=== PATIENT | male | born 1940 | race Caucasian/White ===

== ENCOUNTER 2016-12-18 21:53 | Inpatient (IN) | payer BC, OTHER ==
[~2016-12-18] VITALS: Ht 175.3 cm; Wt 66.0 kg
[2016-12-18 22:54] VITALS: BP 127/71; PULSE 74; TEMP 36.8; Ht 175.3 cm; Wt 66.0 kg
[2016-12-18 23:45] VITALS: BP 120/70; PULSE 74; TEMP 36.7; O2SAT 91
[2016-12-19] VITALS (9 sets, daily range): BP systolic 92–135; BP diastolic 50–75; PULSE 63–84; TEMP 36.9–37.3; O2SAT 93–96
[2016-12-19] MEDS ORDERED: LISI40TA PO (00:07)
[2016-12-19] MEDS ORDERED: AMLO-110 PO (00:07)
[2016-12-19] MEDS ORDERED: SODIUM CHLORIDE 0.45% 1000ML 1,000 ML IV SCH (00:17)
[2016-12-19] MEDS ORDERED: MoRPHine SULFATE 4 MG/ML 1 ML CARP\\VIAL IV PRN (00:30)
[2016-12-19] MEDS ORDERED: MoRPHine SULFATE 2 MG/ML CARP IV PRN (00:30)
[2016-12-19] MEDS ORDERED: ONDANSETRON INJ 2 MG/ML 2 ML VIAL IV PRN ×2 (00:30→12:30)
--- NOTE | 2016-12-19 00:54 | History and Physical ---
History & Physical Date & Time of Service: December 19, 2016 at 00:38 Chief Complaint: Rt Hip Fracture Primary Care Physician: Maik Grubbs M.D. (ROSINE) History of Present Illness Source: patient Patient is a poor historian This is a 76 yo m with HTN that is a direct admit from [place] for a right hip fracture. The patient states that he was painting this afternoon on a ladder when he lost his balance and fell onto his right side. This occurred at approx 1340. He quickly went to [facility] for evaluation and he was found to have a right hip fracture. Dr valdes was contacted and it was advised that the patient be admitted to [facility] for further treatment. Patient states that his pain is a dull 1/10 over the right hip if he is just resting. He does note that with any movement it is an 8-9/10 pain which resolves as soon as he stops moving. he denies any numbness/ tingling of the lower extremity. He has no history of TN or TIA/ stroke. He is only treated for HTN with amlodipine and Lisinopril. He has no history of DM. He has had not previous surgeries. He smokes 1 PPD > 30 years. On assessment patient had a 3/6 systolic murmur noted that radiated to the carotids as well as an occasional skipped heart beat. He has never been evaluated for the murmur. Able to walk a block and a flight of stairs without shortness of breath. Past Medical/Surgical History HTN Family History No significant family history Social History Smoking Status: Current Every Day Smoker (1 PPD x 30 years) Smokeless Tobacco Use: No Alcohol Use: none Drug Use: none Marital Status: Housing status: lives with family Allergies Coded Allergies: No Known Allergies (Unverified , 12/19/16) Home Medications Scheduled Amlodipine (Norvasc), 5 MG PO DAILY Lisinopril (Zestril), 40 MG PO DAILY Review of Systems Constitutional: No fever Eyes: No worsening of vision ENT: + hearing loss (KOBUK, BL) Respiratory: No cough, No dyspnea at rest, No dyspnea on exertion, No shortness of breath, No sputum, No wheezing Cardiovascular: No chest pain Abdomen: No nausea, No pain, No vomiting Musculoskeletal: + joint pain (right hip pain as above), No muscle pain Genitourinary - Male: No dysuria, No urinary incontinence Neurologic: No balance problems, No numbness/tingling, No weakness Endocrine: No fatigue Integumentary: No rash Physical Exam Vital Signs Date Time Temp Pulse Resp B/P Pulse Ox O2 Delivery O2 Flow Rate FiO2 12/18/16 23:45 36.7 74 16 120/70 91 Room Air 12/18/16 22:57 Room Air 12/18/16 22:54 36.8 74 18 127/71 General Appearance: no apparent distress Head: normocephalic, atraumatic Eyes: normal inspection ENT: normal ENT inspection Neck: supple Respiratory/Chest: normal breath sounds, no respiratory distress, no accessory muscle use, + pertinent finding (pes cavis) Cardiovascular: regular rate, rhythm, + systolic murmur (3/6), + pertinent finding (occasional skipped beat) Abdomen/GI: normal bowel sounds, non tender, soft Back: normal inspection Extremities/Musculoskelatal: no calf tenderness, no pedal edema, + pertinent finding (swelling of the right hip, limted ROM of the right leg because of pain , neurovascularly intact in bilat LE, sensation intact in bilat LE) Neurologic/Psych: alert, normal mood/affect, oriented x 3 Skin: normal color, warm/dry, no rash Lymphatic: no adenopathy Diagnostics Laboratory Results Results Past 24 Hours Test 12/19/16 00:17 Range/Units Impression Assessment and Plan This is a 76 yo m that is suffering from a right hip fracture and is anticipating surgery tomorrow Pre op evaluation - Patient is an ASA II with a an RCRI of 0.4% based on the patient's history - As the patient had an unknown murmur and has never had appropriate work up would be appropriate with an echo to rule out severe aortic stenosis - based on results cardiology may be necessary for clearance - EKG and CXR Right hip fracture - Pain control with morphine based on rating - NSS @ 50 cc/h while NPO - Ortho consult - Records from [place] have been sent to HIM for uploading into the EMR - CBC, BMP and Type and screen HTN - continue amlodipine - hold lisinopril DVt prophylaxis - SCD with anticipated surgery Resident Physician Supervision Note: Pt seen/examined independently. I discussed the case with the resident and agree with the findings and plan as documented in the note. Any exceptions or clarifications are listed here: 76 y/o M Hx HTN - fall from stairs transferred from [place] due to R hip Fx OE AAO x 3 S1,2 R - systolic murmur 2-09/30 CTAB NT, ND, BS+ No CCE P: Echo will be obtained to R/O severe which can affect outcomes Pt otherwise does not have significant cardiovascular risk Above discussed with pt and resident Documented By: John Fajardo ASA Classification: ASA Class II Level of Care Med/Surg Advanced Directives Existing Living Will: No Existing Power of Mat Sewer: No Resuscitation Status FULL RESUSCITATION VTE Prophylaxis VTE Risk Assessment Done? Y/N: Yes Risk Level: Moderate Given or contraindicated: SCD's Social Service Consult None Apply Note Total Time: Critical Care 30 - 74 minutes Additional Copies To Maik Grubbs M.D. (ROSINE)
[2016-12-19 01:03] LABS: HEMATOCRIT 38.1 % (42-52); MEAN CELL VOLUME 94.5 fL (80-100); MEAN CORPUSCULAR HGB CONC 34.9 g/dl (32-36); MEAN PLATELET VOLUME 9.6 fL (7.4-10.4); PLATELET COUNT 223 K/uL (130-400); RED BLOOD COUNT 4.03 M/uL (4.7-6.1); WHITE BLOOD COUNT 9.23 K/uL (4.8-10.8)
[2016-12-19 01:21] LABS: BUN/CREATININE RATIO 25.7 (10-20); CALCIUM 8.4 mg/dl (8.5-10.1); CREATININE 1.1 mg/dl (0.60-1.40); POTASSIUM 4.1 mmol/L (3.5-5.1); PROTHROMBIN TIME (PATIENT) 10.9 SECONDS (9.0-12.0)
--- NOTE | 2016-12-19 08:15 | DIAGNOSTIC IMAGING REPORT ---
CHEST ONE VIEW PORTABLE HISTORY: Pre-op. evaluate for surgery COMPARISON: None. FINDINGS: Calcified granuloma within the right lung base. The heart is mildly enlarged. No pleural effusions. No pneumothorax. No focal lung consolidations to suggest pneumonia. No evidence for pulmonary edema. IMPRESSION: Mild cardiomegaly. Otherwise, no acute process within the chest. Electronically signed by: José Leone M.D. 12/19/2016 8:14 AM Dictated Date/Time: 12/19/2016 8:13 AM
--- NOTE | 2016-12-19 08:28 | CONSULTATION REPORT ---
DATE OF CONSULTATION: 12/19/2016 DATE OF CONSULTATION: 12/19/2016. REASON FOR CONSULT: Right hip fracture. HISTORY OF PRESENT ILLNESS: The patient is a 76-year-old white male who states that he was up on a ladder doing some painting. He states he was approximately 4 or 5 rungs up the ladder and the ladder shifted because he states that he did not have it set right and he fell down onto his right side. He had immediate pain in his right hip and groin and was unable to ambulate. He was taken to [facility] where he was found to have a right hip fracture. He was then transferred over to the [facility] through Dr. Maciel who was functional manager and accepted the patient. The patient denies any dizziness or lightheadedness or loss of consciousness prior to the fall or after. He had no chest pain or shortness of breath. He currently is comfortable with his pain control but states that any type of movement of the right lower extremity causes extreme pain. PAST MEDICAL HISTORY: Hypertension. PAST SURGICAL HISTORY: None. FAMILY HISTORY: Noncontributory. SOCIAL HISTORY: The patient is a smoker who smoked 1 pack a day for 30 years. He does not use alcohol and is . MEDICATIONS: Norvasc 5 mg p.o. daily, lisinopril 40 mg p.o. daily. ALLERGIES: NKDA. REVIEW OF SYSTEMS: As per admitting history and physical. PHYSICAL EXAMINATION: GENERAL: The patient is a well-developed, well-nourished white male, alert and oriented x3 and he is in no acute distress. EXTREMITIES: On examination of his right lower extremity, he is in 5 pounds of Boone's traction which is left on during exam. He has moderate swelling over the proximal thigh on the right side and tenderness on palpation. No attempts are made to move the right hip due to fracture. Right knee is nontender on palpation. Range of motion is deferred due to hip fracture. Right ankle and toes move quite well without discomfort and has good sensation. Left lower extremity is essentially benign and nontender, has good range of motion actively and passively and distal pulses are equal bilaterally. Upper extremities he shows no signs of pain in the shoulders, elbows or wrists, both have good active and passive range of motion. Sensation is intact and distal pulses are equal bilaterally. He denies neck pain on palpation, has good range of motion of his neck and denies thoracic or low back pain at this time. NEUROLOGICAL: No gross motor or sensory deficits are seen at this time and he is alert and oriented. DIAGNOSIS: Right proximal femur fracture. PLAN: The patient will require a right trochanteric femoral nailing. This has been discussed with the patient in detail. Risks and benefits have been explained and the patient has consented for surgery. We will plan on doing his surgery later this afternoon with Dr. Sood, of course pending medical clearance. The patient has been ordered an echo which has not been performed yet. We will discuss this with medicine service prior to surgery and plan accordingly.
[2016-12-19] MEDS: AMLODIPINE BESYLATE 5 MG TAB PO SCH (09:06)
[2016-12-19 09:32] LABS: CKMB/CK RATIO 1.1 (0-3.0)
--- NOTE | 2016-12-19 09:48 | Progress Note ---
Progress Note Date of Service December 19, 2016. (Bibi Rosado ., LESTER) Progress Note Patient admitted after midnight, seen and examined by me this morning. Patient denies any pain at rest but does still complain of 8 to 9 out of 10 sharp pain with any movement of his right lower extremity or right hip. The pain starts in his right lateral thigh and radiates down just past his knee. He denies any numbness or tingling. The patient denies fevers, chills, sweats, chest pain, palpitations, claudication, cough, wheezing, shortness of breath, nausea, vomiting, abdominal pain, dysuria, hematuria, urinary retention, paralysis, weakness, numbness and tingling. Physical exam pertinent for 3/6 systolic murmur. Right lateral thigh and lateral aspect of right knee TTP. ROM severely limited secondary to pain. Peripheral pulses intact. Sensation intact. Physical exam otherwise unremarkable. A/P: Right hip fracture--stable -Admitted to med/surg -Femur x-rays from [place] [facility] reviewed. Displaced fracture of proximal femur -Orthopedics consulted, appreciate recs: Pt will need trochanteric nailing, consent obtained. Pending medical clearance -EKG around 00:00 12/19 showed anterior and lateral T wave inversions. Reviewed EKG done at [place] around 17:30 12/18 which only showed T wave inversions of V6 and flattened T waves in leads I and avL -Stat troponin WNL, will repeat at 1200 to make sure not trending upwards. Pt denies any previous cardiac history. No prior stress tests or caths -Echo pending -Cardiology consulted to ensure pt is acceptable risk for surgery, Dr. Prasad aware -Continue prn pain control HTN--stable -Continue amlodipine 5 mg PO qd and lisinopril 40 mg PO qd (Bibi Rosado ., LESTER) Physician Marine Structural Designer Supervision Note: I interviewed and examined the patient. Discussed with ROSA Rosado and agree with findings and plan as documented in the note. Any exceptions or clarifications are listed here: Pt seen in preop holding area today just before surgery. He denies any chest pain or SOB. He is active and never has any problems. He can go up and down a flight of stairs without difficulty. Has never had a cardiac stress test. he does continue to smoke daily. ECHO reviewed and with mod , no WMA and with preserved LV fxn. ECGs reviewed and are likely LVH with strain pattern, could be different from [place] ECG secondary to lead placement. Discussed case with Cardiology RRR 3/6 BENITO at RUSB, no carotid bruits Lungs CTAB breathing unlabored Abd +BS soft NT ND Ext +TTP over right lateral hip, minimal edema Skin no rashes Troponin neg x 2 76 yo male with mechanical fall resulting in right hip fracture, with HTN, moderate , current smoker. At acceptable risk for this intermediate risk surgery and should proceed with surgery -avoid extremes of BPs and volume status post-op -hold amlodipine for low BP -hold ACEI -follow CBC, PRP post-op -PT/OT -DVT Proph with Lovenox -encouraged smoking cessation Documented By: Lisa Matthews (Lisa Matthews MD)
--- NOTE | 2016-12-19 10:33 | Cardiology Consultation ---
Cardiology Consultation Date of Consultation: December 19, 2016. Requesting Physician: Dr. Rosado Reason for Consultation: Heart murmur, abnormal ECG Pt evaluation today including: conversation w/ patient, physical exam, lab review, review of studies, review of inpatient medication list, conversation w/ attending History of Present Illness This is a very pleasant 76-year-old gentleman who has been in good health to his knowledge with no known prior cardiac history. He does have treated hypertension but has had no cardiac or symptoms and no cardiovascular evaluation the past. He was painting on a ladder which was on an unstable surface when he fell over fracturing his right hip. He was transferred for hip replacement and was noted to have T-wave abnormalities and a systolic murmur. On close questioning he has no symptoms with physical activity, he is very active, has no chest discomfort or shortness of breath with activity. He has never been told that he had something wrong with his heart but has not had an echocardiogram. 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 He is aware of it but not bothered by it. On evaluation of his hip fracture he had electrocardiogram which showed some lateral T-wave inversions, and a systolic murmur was identified. Past Medical/Surgical History (1) Closed right hip fracture Family History No significant family history Social History Smoking Status: Current Every Day Smoker (1 PPD x 30 years) History of Alcohol Use: No Review of Systems Constitutional: No fever, No weakness, No weight loss Respiratory: No cough, No dyspnea on exertion, No shortness of breath, No wheezing Cardiac: + palpitations, + see HPI, No PND, No chest pain, No edema, No orthopnea Abdomen: No GI bleeding, No diarrhea, No nausea, No pain, No vomiting Male : No nocturia more than once/night, No sexual dysfunction, No slowing stream, No urinary frequency Neurologic: No balance problems, No numbness/tingling, No paralysis, No weakness Heme: No abnormal bleeding/bruising, No clotting problems Endo: No fatigue Skin: No problem reported All Other Systems: Reviewed and Negative Allergies Coded Allergies: No Known Allergies (Unverified , 12/19/16) Medications Current Inpatient Medications Medications (Trade) Dose Ordered Sig/Nahun Route Start Time Stop Time Status Last Admin Dose Admin Ondansetron HCl 4 mg 4 mg Q6H PRN IV 5/25/17 00:30 01/18/17 00:29 Sodium Chloride (1/2 Nss 1000ml) 1,000 ml @ 50 mls/hr Q20H IV 12/19/16 00:17 01/18/17 00:16 12/19/16 01:15 50 MLS/HR Morphine Sulfate (MoRPHine SULFATE INJ) 2 mg Q1H PRN IV 12/19/16 00:30 01/02/17 00:29 Morphine Sulfate (MoRPHine SULFATE INJ) 4 mg Q1H PRN IV 12/19/16 00:30 01/02/17 00:29 Oxycodone/ Acetaminophen (Percocet 5-325mg Tab) `1-2 TABS FOR PAIN 1 TABLET ... Q4H PRN PO 12/19/16 00:30 01/02/17 00:29 Amlodipine Besylate (Norvasc Tab) 5 mg DAILY PO 12/19/16 09:00 01/18/17 08:59 12/19/16 09:06 5 MG Physical Exam Vital Signs Past 12 Hours Date Time Temp Pulse Resp B/P Pulse Ox O2 Delivery O2 Flow Rate FiO2 12/19/16 08:52 68 135/73 12/19/16 07:55 Nasal Cannula 2.0 12/19/16 07:03 36.9 63 16 122/71 96 2.0 12/19/16 01:15 Nasal Cannula 2.0 12/18/16 23:45 36.7 74 16 120/70 91 Room Air 12/18/16 23:30 Room Air 12/18/16 22:57 Room Air 12/18/16 22:54 36.8 74 18 127/71 Constitutional: General Apperance: heathly-appearing Level of Distress: NAD Psychiatric: Mental Status: active & alert Head: normocephalic Eyes: EOM: EOMI ENMT: normal ENT inspection, hearing grossly normal Neck: supple, no masses Lungs: Respiratory effort: no dyspnea, good air movement Auscultation: breath sounds normal, no wheezing Cardiovascular: Heart Auscultation: RRR, no rubs, no gallops, III/ BENITO, pertinent finding (soft transmitted murmur to both carotids) Peripheral Pulses: Bruits: none appreciated Abdomen: Bowel Sounds: normal Inspection & Palpation: soft, no tenderness, guarding & rebound, no masses Musculoskeletal: normal strength (5/5 throughout) Extremities: no edema Neurologic: Cranial Nerves: grossly intact Sensation: grossly intact Data Laboratory Results: Last 24 Hours Test 12/19/16 00:35 12/19/16 08:39 White Blood Count 9.23 K/uL Red Blood Count 4.03 M/uL Hemoglobin 13.3 g/dL Hematocrit 38.1 % Mean Corpuscular Volume 94.5 fL Mean Corpuscular Hemoglobin 33.0 pg Mean Corpuscular Hemoglobin Concent 34.9 g/dl RDW Standard Deviation 46.9 fL RDW Coefficient of Variation 13.5 % Platelet Count 223 K/uL Mean Platelet Volume 9.6 fL Prothrombin Time 10.9 SECONDS Prothromb Time International Ratio 1.0 Activated Partial Thromboplast Time 25.5 SECONDS Partial Thromboplastin Ratio 1.0 Sodium Level 140 mmol/L Potassium Level 4.1 mmol/L Chloride Level 106 mmol/L Carbon Dioxide Level 27 mmol/L Anion Gap 7.0 mmol/L Blood Urea Nitrogen 28 mg/dl Creatinine 1.10 mg/dl Est Creatinine Clear Calc Drug Dose 51.7 ml/min Estimated GFR () 74.1 Estimated GFR (Non- 64.0 BUN/Creatinine Ratio 25.7 Random Glucose 133 mg/dl Calcium Level 8.4 mg/dl 25-Hydroxy Vitamin D Total 21.1 ng/ml Total Creatine Kinase 469 U/L Creatine Kinase MB 5.3 ng/ml Creatine Kinase MB Ratio 1.1 Troponin I 0.026 ng/ml Imaging: I reviewed his echocardiogram, he has left ventricular hypertrophy but excellent left ventricular function with no wall motion abnormalities, at least moderate aortic stenosis (valve gradients could not be obtained). Not likely severe. EKG: Sinus rhythm with left atrial enlargement, lateral T-wave inversions probably due to left ventricular hypertrophy. On one electrocardiogram there is a ventricular couplet. Assessment & Plan #1. Abnormal electrocardiogram: I believe his electrocardiographic abnormalities (left atrial enlargement and lateral T-wave inversion) or due to left ventricular hypertrophy which is probably due to hypertension and aortic stenosis. I do not believe there is been any progression between the 2 electrocardiograms I do not have a prior electrocardiogram for comparison. It does not seem to represent an acute event (normal troponin). #2. Aortic stenosis: He has at least moderate aortic stenosis on exam, I don't believe it is severe. In addition his echocardiogram is consistent with that. He has no symptoms suggesting that it is severe. #3. Palpitations: He has a lifelong history of a "skipped beat" which has continued, that sounds like premature beats and was observed on his 12-lead electrocardiogram. I don't believe he has been treated for this, he is on 2 medications for hypertension neither of which would suppress his premature beats. At this point I don't think treatment is indicated but if desired beta- blockade could be considered. #4. Closed hip fracture: I believe he is scheduled for surgery today for his hip fracture, I do not believe he is at high risk for the procedure and I would recommend proceeding as planned. I would be cautious with using vasodilators but I don't believe his aortic stenosis is severe enough to cause undue concern. Thank you for allowing me to participate in his care.
--- NOTE | 2016-12-19 10:44 | ECHOCARDIOGRAM REPORT ---
*NOTICE TO RECEIVING REPUBLICAN AGENCY This information is strictly Confidential and protected under [place] law. [place] law prohibits you from making any further disclosure of this information unless further disclosure is expressly permitted by the written consent of the person to whom it pertains or is authorized by law. A general authorization for the release of medical or other information is not sufficient for this purpose. Hospital accepts no responsibility if the information is made available to any other person, INCLUDING THE PATIENT. Interpretation Summary * Name: MONTSERRAT MONTEMAYOR Study Date: 12/19/2016 07:03 AM BP: 122/71 mmHg * Patient Location: .DAIRY MANAGER\S\W357\S\2 HR: 77 * : 1940 (M/d/yyyy) Gender: Male Height: 69 in * Age: 76 yrs Ethnicity: CA Weight: 145 lb * Ordering Physician: Prachi Hendrickson * Referring Physician: Self, Referred * Performed By: Geetha Sue RDCS * * Reason For Study: MURMURS * BSA: 1.8 m2 * -- Conclusions -- * Limited views were obtained. * There is mild concentric left ventricular hypertrophy. * Left ventricular systolic function is normal. * Probably moderate based on 2-D images. Not severe. * There is moderate mitral annular calcification. Procedure Details * Patient unable to roll due to broken hip, No Apical window * Limited views were obtained. Left Ventricle * The left ventricle is grossly normal size. * There is mild concentric left ventricular hypertrophy. * Ejection Fraction = 60-65%. * Left ventricular systolic function is normal. * The left ventricular wall motion is normal. Right Ventricle * The right ventricle is grossly normal size. Atria * The left atrial size is normal. Mitral Valve * There is moderate mitral annular calcification. * Significant mitral regurgitation is absent. Tricuspid Valve * The tricuspid valve is not well visualized. Aortic Valve * Calcified valve with limited mobility of the left and right coronary cusps * Probably moderate based on 2-D images. Not severe. * No aortic regurgitation is present. Pericardium/Pleural * There is no pericardial effusion. MMode 2D Measurements and Calculations IVSd 1.5 cm IVSs 1.5 cm LVIDd 4.1 cm LVIDs 2.7 cm LVPWd 1.4 cm LVPWs 1.6 cm IVS/LVPW 1.1 FS 33.0 % EDV(Teich) 73.4 ml ESV(Teich) 27.9 ml EF(Teich) 62.0 % EDV(cubed) 67.9 ml ESV(cubed) 20.4 ml EF(cubed) 69.9 % % IVS thick 4.2 % % LVPW thick 19.1 % LV mass(C)d 215.7 grams LV mass(C)dI 119.7 grams/m\S\2 LV mass(C)s 150.9 grams LV mass(C)sI 83.8 grams/m\S\2 SV(Teich) 45.5 ml SI(Teich) 25.3 ml/m\S\2 SV(cubed) 47.5 ml SI(cubed) 26.4 ml/m\S\2 Ao root diam 3.7 cm Ao root area 10.7 cm\S\2 LA dimension 3.2 cm LA/Ao 0.85 LVOT diam 2.2 cm LVOT area 3.7 cm\S\2
[2016-12-19] MEDS ORDERED: BUPIVACAINE 0.5 % 5 MG/1 ML PF 10ML VIAL ONE (11:18)
[2016-12-19] MEDS ORDERED: MIDAZOLAM HCL 1 MG/ML 2ML VIAL ONE (12:04)
[2016-12-19] MEDS ORDERED: GLYCOPYRROLATE INJ 0.2 MG/ML VIAL ONE ×2 (12:04→14:41)
[2016-12-19] MEDS ORDERED: ONDANSETRON INJ 2 MG/ML 2 ML VIAL ONE (12:04)
[2016-12-19] MEDS ORDERED: LIDOCAINE HCL 2% 2 ML VIAL (20MG/ML) ONE (12:04)
[2016-12-19] MEDS ORDERED: FENTANYL CITRATE INJ 50 MCG/1 ML 2 ML VIAL ONE (12:04)
[2016-12-19] MEDS ORDERED: ROCURONIUM BROMID 50MG/5ML SYR ONE (12:04)
[2016-12-19] MEDS ORDERED: PROPOFOL IV EMULSION 10 MG/ML 20 ML VIAL IV ONE ×2 (12:04→14:42)
[2016-12-19] MEDS ORDERED: NEOSTIGMINE METHYLSULFATE 5 MG/5 ML SYR ONE (12:05)
[2016-12-19] MEDS ORDERED: ATROPINE SULFATE 0.1 MG/ML 5ML SYR IV PRN (12:30)
[2016-12-19] MEDS ORDERED: FENTANYL CITRATE INJ 50 MCG/1 ML 2 ML VIAL IV PRN (12:30)
[2016-12-19] MEDS ORDERED: ALBUT/IPRATROP 3MG/0.5MG NEB 3 ML VIAL INH PRN (12:30)
[2016-12-19] MEDS ORDERED: EpHEDrine SULFATE INJ 50 MG/ML AMP IV PRN (12:30)
[2016-12-19] MEDS ORDERED: HYDROmorphone INJ 1 MG/ML SYR IV PRN (12:30)
[2016-12-19] MEDS ORDERED: BACITRACIN 50000 UNIT VIAL ONE (12:51)
[2016-12-19] MEDS ORDERED: NURSING VERBAL MED ORDER ONE ×2 (13:00→13:30)
[2016-12-19] MEDS: CEFAZOLIN SOD 1000MG/55 ML D5W IV ONE ×2 (13:35→13:36)
[2016-12-19] MEDS ORDERED: SUCCINYLCHOLINE 100MG/5ML SYR IV ONE (14:03)
[2016-12-19] MEDS ORDERED: ALBUTEROL HFA INHALER 8.5 GM INH ONE (14:15)
--- NOTE | 2016-12-19 14:40 | Anesthesiology Progress Note ---
Anesthesia Post Op Note Date & Time December 19, 2016 at 14:40 Vital Signs Pain Intensity: 0.0 Vital Signs Past 12 Hours Date Time Temp Pulse Resp B/P Pulse Ox O2 Delivery O2 Flow Rate FiO2 12/19/16 08:52 68 135/73 12/19/16 07:55 Nasal Cannula 2.0 12/19/16 07:03 36.9 63 16 122/71 96 2.0 Notes Mental Status: alert / awake / arousable, participated in evaluation Pt Amnestic to Procedure: Yes Nausea / Vomiting: adequately controlled Pain: adequately controlled Airway Patency, RR, SpO2: stable & adequate BP & HR: stable & adequate Hydration State: stable & adequate Anesthetic Complications: no major complications apparent
--- NOTE | 2016-12-19 14:43 | [facility] Post Operative Brief Note ---
Immediate Operative Summary Operative Date December 19, 2016. Pre-Operative Diagnosis Right hip fracture Post-Operative Diagnosis Right hip fracture Procedure(s) Performed Right Intertrochanteric hip nailing Surgeon Dr. Shade Sood Animal Pathologist Surgeon(s) Froy Brown PA-C Estimated Blood Loss 50ML Findings Displaced subtroch fracture Specimens none Anesthesia spinal Complication(s) None Disposition Recovery Room / PACU
--- NOTE | 2016-12-19 15:00 | DIAGNOSTIC IMAGING REPORT ---
INTRAOPERATIVE RADIOGRAPHS CLINICAL HISTORY: Open reduction and internal fixation of the right femur. Fluoroscopy time: 78 seconds. FINDINGS: 6 spot fluoroscopic views of the right femur are correlated with femoral radiographs from [facility] dated 12/18/2016. Intertrochanteric and intramedullary nails have been placed in the right femur transfixing a comminuted subtrochanteric fracture. There has been significant improvement in alignment. There is persistent offset of the largest fragments. A single cortical-like screw is present in the distal aspect of the nail. Overlying soft tissue swelling is observed. IMPRESSION: Intraoperative images from open reduction and internal fixation of the right femur as above. Electronically signed by: Pasquale Barroso M.D. 12/19/2016 2:58 PM Dictated Date/Time: 12/19/2016 2:56 PM
--- NOTE | 2016-12-19 15:00 | DIAGNOSTIC IMAGING REPORT ---
INTRAOPERATIVE RADIOGRAPHS CLINICAL HISTORY: Open reduction and internal fixation of the right femur. Fluoroscopy time: 78 seconds. FINDINGS: 6 spot fluoroscopic views of the right femur are correlated with femoral radiographs from [facility] dated 12/18/2016. Intertrochanteric and intramedullary nails have been placed in the right femur transfixing a comminuted subtrochanteric fracture. There has been significant improvement in alignment. There is persistent offset of the largest fragments. A single cortical-like screw is present in the distal aspect of the nail. Overlying soft tissue swelling is observed. IMPRESSION: Intraoperative images from open reduction and internal fixation of the right femur as above. Electronically signed by: Pasquale Barroso M.D. 12/19/2016 2:58 PM Dictated Date/Time: 12/19/2016 2:56 PM
--- NOTE | 2016-12-19 15:33 | DIAGNOSTIC IMAGING REPORT ---
RIGHT FEMUR 2 VIEWS ROUTINE CLINICAL HISTORY: post-op troch nail Right. Right femur fracture. COMPARISON STUDY: Right hip 12/19/2016. Right femur 12/18/2016 FINDINGS: The patient is status post internal fixation of a right femoral intertrochanteric fracture. There is a short intramedullary taz and interlocking femoral neck pin. The hardware appears intact. Skin ronda are noted. The distal femur is intact. The transfixed fracture is slightly impacted and demonstrates 9 mm of medial and posterior displacement. IMPRESSION: Postoperative changes consistent with internal fixation of a right femoral intertrochanteric fracture. The hardware appears intact. There is improved anatomic alignment from the preoperative study with mild displacement as described above Electronically signed by: José Leone M.D. 12/19/2016 3:32 PM Dictated Date/Time: 12/19/2016 3:29 PM
--- NOTE | 2016-12-19 17:03 | OPERATIVE REPORT ---
DATE OF OPERATION: 12/19/2016 PREOPERATIVE DIAGNOSIS: Subtrochanteric hip fracture, right. POSTOPERATIVE DIAGNOSIS: Subtrochanteric hip fracture, right. PROCEDURE: Closed reduction, intermediate trochanteric nailing right hip. SURGEON: Shade Sood MD WATER SAFETY INSTRUCTOR: Froy Brown PA-C. ANESTHESIA: Spinal. COMPLICATIONS: None. DESCRIPTION OF PROCEDURE: Following the induction of adequate spinal anesthesia, the patient was placed on the fracture table and her right hip was prepped and draped in usual sterile manner. Longitudinal incision was made centered on the trochanter proximally. Subcutaneous tissue was sharply dissected. Electrocautery was used for hemostasis. The greater trochanter was identified and a cochlear retractor was utilized to internally rotate and greatly externally rotate proximal fragment and a drill tipped guidewire was placed to the tip of the greater trochanter. This was taken into the distal fragment. This was overdrilled using a 17 mm introduction drill. An intermediate troch nail was obtained and after adequate reduction was obtained, the femoral nail was inserted over the beaded tipped guidewire. The guidewire was removed. Proximal locking was carried out using 105 mm helical blade and this was locked proximally. Next, distal locking was carried out using a single 38 mm screw. This produced rigid fixation and adequate reduction of the patient's fracture. The wound was irrigated and closed in layers. Fascia was closed using #1 Vicryl, subcutaneous tissue was closed using 0 Dexon, and skin was closed with ronda. Sterile dressing of Adaptic, 4x4s, ABDs and foam tape was applied. The patient tolerated the procedure well. I attest to the content of the Intraoperative Record and any orders documented therein. Any exceptions are noted below. MTDD
[2016-12-19] MEDS: LACTATED RINGER'S 1000ML 1,000 ML IV SCH (17:12)
[2016-12-19] MEDS: OXYCODONE/ACETAMINOPHEN 5-325 TAB PO PRN (21:35)
[2016-12-19] MEDS: CEFAZOLIN IV 1,000 MG in DEXTROSE 5% 50ML 50 ML IV SCH (22:33)
[2016-12-20] VITALS (8 sets, daily range): BP systolic 95–124; BP diastolic 52–73; PULSE 67–79; TEMP 36.6–37.1; O2SAT 91–96
[2016-12-20] MEDS: CEFAZOLIN IV 1,000 MG in DEXTROSE 5% 50ML 50 ML IV SCH (06:07)
[2016-12-20] MEDS: OXYCODONE/ACETAMINOPHEN 5-325 TAB PO PRN ×4 (06:10→22:29)
[2016-12-20 07:22] LABS: BASO % 0.1 %; BASO ABS # 0.01 K/uL (0-0.2); COMPLETE YES; EOS % 0.2 %; HEMATOCRIT 31.8 % (42-52); IG% 0.2 %; LYMPH % 15.5 %; LYMPH ABS # 1.58 K/uL (1.2-3.4); MEAN CELL VOLUME 96.1 fL (80-100); MEAN CORPUSCULAR HEMOGLOBIN 33.5 pg (25-34); MEAN CORPUSCULAR HGB CONC 34.9 g/dl (32-36); MEAN PLATELET VOLUME 9.8 fL (7.4-10.4); MONO % 10.5 %; NEUT % 73.5 %; PLATELET COUNT 164 K/uL (130-400); RED BLOOD COUNT 3.31 M/uL (4.7-6.1); WHITE BLOOD COUNT 10.21 K/uL (4.8-10.8)
[2016-12-20 07:56] LABS: BUN/CREATININE RATIO 26.9 (10-20); CALCIUM 7.9 mg/dl (8.5-10.1); CREATININE 1.2 mg/dl (0.60-1.40); MAGNESIUM 2.5 mg/dl (1.8-2.4); POTASSIUM 3.9 mmol/L (3.5-5.1)
--- NOTE | 2016-12-20 08:27 | Anesthesiology Progress Note ---
Anesthesia Post Op Note Date & Time December 20, 2016 at 08:27 Vital Signs Pain Intensity: 6.0 Vital Signs Past 12 Hours Date Time Temp Pulse Resp B/P Pulse Ox O2 Delivery O2 Flow Rate FiO2 12/20/16 07:44 37.1 68 16 97/55 92 2.0 12/20/16 03:45 37.1 67 16 98/63 96 Room Air 12/20/16 00:30 Nasal Cannula 3.0 12/19/16 22:55 36.9 72 16 97/56 94 Nasal Cannula 2.0 Notes Mental Status: alert / awake / arousable, participated in evaluation Pt Amnestic to Procedure: Yes Nausea / Vomiting: adequately controlled Pain: adequately controlled Airway Patency, RR, SpO2: stable & adequate BP & HR: stable & adequate Hydration State: stable & adequate Anesthetic Complications: no major complications apparent
[2016-12-20] MEDS: AMLODIPINE BESYLATE 5 MG TAB PO SCH (08:49)
--- NOTE | 2016-12-20 09:19 | Cardiology Follow-Up ---
Subjective Date of Service: December 20, 2016. Pt evaluation today including: conversation w/ patient, physical exam, lab review, review of studies, review of inpatient medication list History of Present Illness This is a very pleasant 76-year-old gentleman who has been in good health to his knowledge with no known prior cardiac history. He does have treated hypertension but has had no cardiac or symptoms and no cardiovascular evaluation the past. He was painting on a ladder which was on an unstable surface when he fell over fracturing his right hip. He was transferred for hip replacement and was noted to have T-wave abnormalities and a systolic murmur. On close questioning he has no symptoms with physical activity, he is very active, has no chest discomfort or shortness of breath with activity. He has never been told that he had something wrong with his heart but has not had an echocardiogram. 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 He is aware of it but not bothered by it. On evaluation of his hip fracture he had electrocardiogram which showed some lateral T-wave inversions, and a systolic murmur was identified. On echocardiography he has moderate aortic stenosis and left ventricular hypertrophy. He did have his hip surgery done yesterday. Today he feels well, he has some hip discomfort but has no cardiovascular symptoms. Social History Smoking Status: Current Every Day Smoker (1 PPD x 30 years) History of Alcohol Use: No Review of Systems Respiratory: No cough, No dyspnea on exertion, No shortness of breath, No wheezing Cardiac: + palpitations, + see HPI, No PND, No chest pain, No edema, No orthopnea Objective Vital Signs Past 12 Hours Date Time Temp Pulse Resp B/P Pulse Ox O2 Delivery O2 Flow Rate FiO2 12/20/16 08:48 95/52 12/20/16 07:44 37.1 68 16 97/55 92 2.0 12/20/16 07:40 Nasal Cannula 2.0 12/20/16 03:45 37.1 67 16 98/63 96 Room Air 12/20/16 00:30 Nasal Cannula 3.0 12/19/16 22:55 36.9 72 16 97/56 94 Nasal Cannula 2.0 Last Recorded Weight-Kilograms: 66.000 Intake & Output 8-Hour Column 12/19/16 12/20/16 12/20/16 16:00 00:00 08:00 Intake Total 800 ml 299 ml 173 ml Output Total 300 ml 100 ml 200 ml Balance 500 ml 199 ml -27 ml 24-Hour Column 12/20/16 08:00 Intake Total 1272 ml Output Total 600 ml Balance 672 ml Physical Exam Constitutional: General Apperance: heathly-appearing Level of Distress: NAD Lungs: Respiratory effort: no dyspnea, good air movement Auscultation: breath sounds normal, no wheezing Cardiovascular: Heart Auscultation: RRR, no rubs, no gallops, III/ BENITO, pertinent finding (soft transmitted murmur to both carotids) Peripheral Pulses: Bruits: none appreciated Extremities: no edema Data Laboratory Results: Last 24 Hours Test 12/19/16 12:09 12/20/16 07:04 Troponin I 0.025 ng/ml White Blood Count 10.21 K/uL Red Blood Count 3.31 M/uL Hemoglobin 11.1 g/dL Hematocrit 31.8 % Mean Corpuscular Volume 96.1 fL Mean Corpuscular Hemoglobin 33.5 pg Mean Corpuscular Hemoglobin Concent 34.9 g/dl Platelet Count 164 K/uL Mean Platelet Volume 9.8 fL Neutrophils (%) (Auto) 73.5 % Lymphocytes (%) (Auto) 15.5 % Monocytes (%) (Auto) 10.5 % Eosinophils (%) (Auto) 0.2 % Basophils (%) (Auto) 0.1 % Neutrophils # (Auto) 7.51 K/uL Lymphocytes # (Auto) 1.58 K/uL Monocytes # (Auto) 1.07 K/uL Eosinophils # (Auto) 0.02 K/uL Basophils # (Auto) 0.01 K/uL RDW Standard Deviation 48.6 fL RDW Coefficient of Variation 13.7 % Immature Granulocyte % (Auto) 0.2 % Immature Granulocyte # (Auto) 0.02 K/uL Sodium Level 135 mmol/L Potassium Level 3.9 mmol/L Chloride Level 103 mmol/L Carbon Dioxide Level 28 mmol/L Anion Gap 4.0 mmol/L Blood Urea Nitrogen 32 mg/dl Creatinine 1.20 mg/dl Est Creatinine Clear Calc Drug Dose 47.4 ml/min Estimated GFR () 66.7 Estimated GFR (Non- 57.6 BUN/Creatinine Ratio 26.9 Random Glucose 117 mg/dl Calcium Level 7.9 mg/dl Magnesium Level 2.5 mg/dl EKG: Postop electrocardiogram shows no significant changes from preop. Consistent with left ventricular hypertrophy. Assessment and Plan #1. Abnormal electrocardiogram: I believe his electrocardiographic abnormalities (left atrial enlargement and lateral T-wave inversion) or due to left ventricular hypertrophy which is probably due to hypertension and aortic stenosis. I do not believe there is been any progression between the electrocardiograms I do not have a prior electrocardiogram for comparison. It does not seem to represent an acute event. #2. Aortic stenosis: He has at least moderate aortic stenosis on exam, I don't believe it is severe. In addition his echocardiogram is consistent with that. He has no symptoms suggesting that it is severe. This will need to be watched over the long run, however I would not alter his therapy currently and it should not interfere with his rehabilitation. #3. Palpitations: He has a lifelong history of a "skipped beat" which has continued, that sounds like premature beats and was observed on his 12-lead electrocardiogram. I don't believe he has been treated for this, he is on 2 medications for hypertension neither of which would suppress his premature beats. At this point I don't think treatment is indicated but if desired beta- blockade could be considered as an alternative to one of his blood pressure medications. #4. Closed hip fracture: He did well during surgery from the cardiovascular standpoint.. Thank you for allowing me to participate in his care.
--- NOTE | 2016-12-20 09:23 | Orthopedic Progress Note ---
Orthopedic Progress Note Date of Service December 20, 2016. Subjective Post OP Day: 1 Reports: feeling well, Denies: SOB, calf pain, chest pain, light headedness, nausea / vomiting Additional Notes: Painful in the Right hip earlier but better now since he took his pain medication. No other complaints. Discussed that he may need a short rehab stay prior to going home. Pt seems to be in agreement. Objective calves soft nontender, N/V intact, dressing C/D/I, A&O x3, toes mobile Right thigh swollen but soft. Date Time Temp Pulse Resp B/P Pulse Ox O2 Delivery O2 Flow Rate FiO2 12/20/16 08:48 95/52 12/20/16 07:44 37.1 68 16 97/55 92 2.0 12/20/16 07:40 Nasal Cannula 2.0 12/20/16 03:45 37.1 67 16 98/63 96 Room Air 12/20/16 00:30 Nasal Cannula 3.0 12/19/16 22:55 36.9 72 16 97/56 94 Nasal Cannula 2.0 12/19/16 19:19 37.0 75 18 99/58 93 Nasal Cannula 3.0 12/19/16 18:20 37.3 76 16 92/50 93 Nasal Cannula 3.0 12/19/16 17:13 37.1 84 18 121/75 94 Nasal Cannula 3.0 12/19/16 16:45 96 Nasal Cannula 3.0 12/19/16 16:40 37.1 67 18 113/69 96 Nasal Cannula 3.0 12/19/16 16:10 37.2 70 16 111/62 94 Nasal Cannula 2.0 12/19/16 16:10 94 Nasal Cannula 2.0 12/19/16 16:01 36.8 12/19/16 16:01 117/75 12/19/16 15:58 72 19 94 12/19/16 15:58 71 19 12/19/16 15:53 63 20 12/19/16 15:53 72 20 96 12/19/16 15:51 118/65 12/19/16 15:48 64 23 12/19/16 15:48 65 23 97 12/19/16 15:46 117/62 12/19/16 15:43 67 28 12/19/16 15:43 69 28 97 12/19/16 15:41 121/66 12/19/16 15:38 71 22 12/19/16 15:38 73 22 96 12/19/16 15:37 69 22 96 12/19/16 15:37 66 22 12/19/16 15:36 119/71 12/19/16 15:32 63 20 12/19/16 15:32 63 20 98 12/19/16 15:31 129/71 12/19/16 15:27 64 17 127/69 100 12/19/16 15:27 64 17 12/19/16 15:26 71 16 100 12/19/16 15:26 60 16 12/19/16 15:23 98/68 12/19/16 15:21 69 18 12/19/16 15:21 67 18 100 12/19/16 15:16 66 21 12/19/16 15:16 71 21 12/19/16 15:11 60 23 12/19/16 15:11 68 23 127/72 99 12/19/16 15:07 113/67 12/19/16 15:06 64 16 100 12/19/16 15:06 65 16 12/19/16 15:02 121/61 12/19/16 15:01 68 25 12/19/16 15:01 70 25 97 12/19/16 15:01 36.8 67 18 121/61 98 Mask 10 Laboratory Results 24 Hours: Test 12/20/16 07:04 White Blood Count 10.21 K/uL Red Blood Count 3.31 M/uL Hemoglobin 11.1 g/dL Hematocrit 31.8 % Mean Corpuscular Volume 96.1 fL Mean Corpuscular Hemoglobin 33.5 pg Mean Corpuscular Hemoglobin Concent 34.9 g/dl Platelet Count 164 K/uL Mean Platelet Volume 9.8 fL Neutrophils (%) (Auto) 73.5 % Lymphocytes (%) (Auto) 15.5 % Monocytes (%) (Auto) 10.5 % Eosinophils (%) (Auto) 0.2 % Basophils (%) (Auto) 0.1 % Neutrophils # (Auto) 7.51 K/uL Lymphocytes # (Auto) 1.58 K/uL Monocytes # (Auto) 1.07 K/uL Eosinophils # (Auto) 0.02 K/uL Basophils # (Auto) 0.01 K/uL Assessment & Plan Assessment: POD 1 s/p Right TFN Plan: PT/OT - WBAT Will likely need Rehab vs SNF depending on how he does with PT Inhouse Planning Pain Management: Percocet, Morphine DVT Prophylaxis: TEDs, SCDs, Lovenox Discharge Planning Discharge Planning: uncertain
--- NOTE | 2016-12-20 09:27 | Consultant Recommendations ---
Banana Expert Recommendations Date of Service December 20, 2016. Banana Expert Recommendations [facility] [place] INSTRUCTIONS: HIP FRACTURE SELF CARE INSTRUCTIONS: A. You are to ambulate with a walker or crutches for approximately 6 weeks. B. You are WEIGHT BEARING TOLERATED on your operative lower extremity . C. Wear low heeled shoes with non-slip soles D. Be sure that your floors are free of things that could trip you throw rugs, electrical cords, and small objects. Avoid wet and waxed floors, especially with crutches/walker/cane. E. Try to walk several times a day with rest periods between. F. You may shower 48 hours after surgery and get the incision area wet, but DO NOT soak or submerge incision area in water. (No baths, swimming pools, hot tubs ) G. You may have a large, band-aid like dressing over your incision (Aquacel). This will remain on your incision for 7 days, and then can be removed. You CAN shower with this on. If incision is leaking through the dressing, please call the office . H. Do NOT apply soap or any ointment/lotions directly over incision. I. You may use ice as needed to operative site. SPECIAL CARE INSTRUCTIONS: VERY IMPORTANT TO READ AND REVIEW A. You may be at risk for phlebitis or blood clots. a. Wear surgical stockings (JOSUE hose) for 2 weeks after surgery to improve circulation and reduce swelling. b. Take LOVENOX 30mg SQ BID for 2 - 4 weeks or as directed. This is your blood thinner. B. There are a few signs you need to watch for after you are home. Call [facility] at [phone] if you experience any of the following: a. If you have a temperature of 101 degrees or higher. b. Sudden increase in pain in your hip not relieved by rest or pain medication. c. Any fluid or drainage from the incision; redness of the incision. d. Shortness of breath or chest pain. B. Please call [facility] at [phone] if you have any questions or concerns about your operation or recovery. C. Call your physician if: a. Temperature is greater than 101 degrees (F). b. Pain is not relieved by prescribed pain medications. c. Increase drainage or redness from incision. d. Unanswered questions or concerns. D. Pain Medication: a. You will be prescribed pain medication upon discharge that should last till your first post-operative appointment. b. If you experience nausea and/or skin rash, discontinue this medication and contact our office for an alternative medication. c. Caution- narcotic pain medication can cause constipation. FOLLOW UP VISIT: Please call [facility] at [phone] to schedule a follow up appointment with Dr Sodo 10-14 days from the date of your surgery date.
--- NOTE | 2016-12-20 10:52 | Hospitalist Progress Note ---
Hospitalist Progress Note Date of Service December 20, 2016. (Jana Lerma PA-C) Subjective Pt evaluation today including: conversation w/ patient, physical exam, chart review, lab review, review of studies, review of inpatient medication list Patient seen and evaluated. He is S/P Nailing. Reporting good control with pain medication at this time. No pain currently, only present with movement. PT was planning to work with patient after my exam. He is tolerating a diet without abdominal pain/N/V. Constitutional: + fatigue ("sleepy"), No chills, No fever Eyes: No worsening of vision Respiratory: No cough, No shortness of breath Cardiovascular: No chest pain, No palpitations Abdomen: No nausea, No pain, No vomiting Musculoskeletal: No calf pain, No joint pain, No swelling Skin: No rash (Jana Lerma, LESTER) Medications Current Inpatient Medications Medications (Trade) Dose Ordered Sig/Nahun Route Start Time Stop Time Status Last Admin Dose Admin Ondansetron HCl (Zofran Inj) 4 mg Q6H PRN IV 12/19/16 00:30 01/18/17 00:29 Morphine Sulfate (MoRPHine SULFATE INJ) 2 mg Q1H PRN IV 12/19/16 00:30 01/02/17 00:29 Morphine Sulfate (MoRPHine SULFATE INJ) 4 mg Q1H PRN IV 12/19/16 00:30 01/02/17 00:29 12/19/16 17:08 4 MG Oxycodone/ Acetaminophen (Percocet 5-325mg Tab) `1-2 TABS FOR PAIN 1 TABLET ... Q4H PRN PO 12/19/16 00:30 01/02/17 00:29 12/20/16 06:10 2 TAB Amlodipine Besylate 5 mg 5 mg DAILY PO 12/19/16 09:00 01/18/17 08:59 12/19/16 09:06 5 MG Lactated Ringer's (Lr 1000ml) 1,000 ml @ 15 mls/hr Q24H IV 12/19/16 13:00 01/18/17 12:59 12/19/16 17:12 15 MLS/HR Enoxaparin Sodium (Lovenox Inj) 30 mg Q12H SQ 12/20/16 14:00 01/19/17 13:59 (Jana Lerma PA-C) Objective Vital Signs Date Time Temp Pulse Resp B/P Pulse Ox O2 Delivery O2 Flow Rate FiO2 12/20/16 08:48 95/52 12/20/16 07:44 37.1 68 16 97/55 92 2.0 12/20/16 07:40 Nasal Cannula 2.0 12/20/16 03:45 37.1 67 16 98/63 96 Room Air 12/20/16 00:30 Nasal Cannula 3.0 12/19/16 22:55 36.9 72 16 97/56 94 Nasal Cannula 2.0 12/19/16 19:19 37.0 75 18 99/58 93 Nasal Cannula 3.0 12/19/16 18:20 37.3 76 16 92/50 93 Nasal Cannula 3.0 12/19/16 17:13 37.1 84 18 121/75 94 Nasal Cannula 3.0 12/19/16 16:45 96 Nasal Cannula 3.0 12/19/16 16:40 37.1 67 18 113/69 96 Nasal Cannula 3.0 12/19/16 16:10 37.2 70 16 111/62 94 Nasal Cannula 2.0 12/19/16 16:10 94 Nasal Cannula 2.0 12/19/16 16:01 36.8 12/19/16 16:01 117/75 12/19/16 15:58 72 19 94 12/19/16 15:58 71 19 12/19/16 15:53 63 20 12/19/16 15:53 72 20 96 12/19/16 15:51 118/65 12/19/16 15:48 64 23 12/19/16 15:48 65 23 97 12/19/16 15:46 117/62 12/19/16 15:43 67 28 12/19/16 15:43 69 28 97 12/19/16 15:41 121/66 12/19/16 15:38 71 22 12/19/16 15:38 73 22 96 12/19/16 15:37 69 22 96 12/19/16 15:37 66 22 12/19/16 15:36 119/71 12/19/16 15:32 63 20 12/19/16 15:32 63 20 98 12/19/16 15:31 129/71 12/19/16 15:27 64 17 127/69 100 12/19/16 15:27 64 17 12/19/16 15:26 71 16 100 12/19/16 15:26 60 16 12/19/16 15:23 98/68 12/19/16 15:21 69 18 12/19/16 15:21 67 18 100 12/19/16 15:16 66 21 12/19/16 15:16 71 21 12/19/16 15:11 60 23 12/19/16 15:11 68 23 127/72 99 12/19/16 15:07 113/67 12/19/16 15:06 64 16 100 12/19/16 15:06 65 16 12/19/16 15:02 121/61 12/19/16 15:01 68 25 12/19/16 15:01 70 25 97 12/19/16 15:01 36.8 67 18 121/61 98 Mask 10 (Jana Lerma PA-C) Physical Exam General Appearance: WD/WN, no apparent distress Eyes: sclerae normal ENT: hearing grossly normal Neck: supple, no JVD, trachea midline Respiratory/Chest: no respiratory distress, no accessory muscle use, + decreased breath sounds (diminished throughout), + pertinent finding (pectus excavatum) Cardiovascular: regular rate, rhythm, no gallop, + systolic murmur Abdomen: normal bowel sounds, non tender, soft Extremities: no pedal edema, no calf tenderness, + pertinent finding (dressing applied that is clean/dry/intact to R hip no signs of infection of surrounding skin) Neurologic/Psychiatric: alert, oriented x 3 (Jana Lerma, ROSA-C) Laboratory Results Last 24 Hours Test 12/19/16 12:09 12/20/16 07:04 Troponin I 0.025 ng/ml White Blood Count 10.21 K/uL Red Blood Count 3.31 M/uL Hemoglobin 11.1 g/dL Hematocrit 31.8 % Mean Corpuscular Volume 96.1 fL Mean Corpuscular Hemoglobin 33.5 pg Mean Corpuscular Hemoglobin Concent 34.9 g/dl Platelet Count 164 K/uL Mean Platelet Volume 9.8 fL Neutrophils (%) (Auto) 73.5 % Lymphocytes (%) (Auto) 15.5 % Monocytes (%) (Auto) 10.5 % Eosinophils (%) (Auto) 0.2 % Basophils (%) (Auto) 0.1 % Neutrophils # (Auto) 7.51 K/uL Lymphocytes # (Auto) 1.58 K/uL Monocytes # (Auto) 1.07 K/uL Eosinophils # (Auto) 0.02 K/uL Basophils # (Auto) 0.01 K/uL RDW Standard Deviation 48.6 fL RDW Coefficient of Variation 13.7 % Immature Granulocyte % (Auto) 0.2 % Immature Granulocyte # (Auto) 0.02 K/uL Sodium Level 135 mmol/L Potassium Level 3.9 mmol/L Chloride Level 103 mmol/L Carbon Dioxide Level 28 mmol/L Anion Gap 4.0 mmol/L Blood Urea Nitrogen 32 mg/dl Creatinine 1.20 mg/dl Est Creatinine Clear Calc Drug Dose 47.4 ml/min Estimated GFR () 66.7 Estimated GFR (Non- 57.6 BUN/Creatinine Ratio 26.9 Random Glucose 117 mg/dl Calcium Level 7.9 mg/dl Magnesium Level 2.5 mg/dl (Jana Lerma PA-C) Assessment and Plan Mr. Patel is a 76 y/o male with PMHx of HTN and Aortic Stenosis who presents due to a fall from a ladder with R Hip Fx and is now S/P nailing. Possible Pathologic R Hip Fracture S/P Trochanteric Nailing 12/19: Underlying Osteoporosis - Morphine 2-4 mg IV PRN and Percocet 1-2 tab Q4H PRN - Low Vit D - replete with Calcium and Vit D supplementation - Orthopedics following - recommendations reviewed Acute Anemia: - Hgb from 13 to 11 - will repeat CBC this afternoon to monitor fany. in the setting of low BPs - no signs of active bleeding Moderate Aortic Stenosis: STABLE - Echocardiogram confirmed - Cardiology following for initial pre-operative clearance HTN: LOW BUT STABLE - Hold Amlodipine 5 mg daily at this time - Continue to hold Lisinoprol DVT Prophylaxis: - Lovenox 30 mg SC daily Disposition: - Await PT/OT evaluations - evaluate for acute rehab stay - May benefit from bone scan as outpatient - fell from 4-5 rungs up a ladder Continued [facility] stay due to: ambulation difficulties Discharge planning: uncertain (Jana Lerma PA-C) Reviewed: Pt Seen/Exam by Me (Lisa Matthews MD) History Physician Frame Nailer Supervision Note: I interviewed and examined the patient. Discussed with ROSA Lerma and agree with findings and plan as documented in the note. Any exceptions or clarifications are listed here: He denies any chest pain or SOB. Pain in hip controlled, Gomez still in place and urine a bit concentrated. BP low this AM. NAD, AAOx3 RRR 3/6 BENITO at RUSB, no carotid bruits Lungs CTAB breathing unlabored, slightly diminished BS throughout Abd +BS soft NT ND Ext +TTP over right lateral hip, minimal edema, dressing c/d/i Skin no rashes Repeat CBC this afternoon without significant drop in hgb 76 yo male with mechanical fall resulting in right hip fracture, with HTN, moderate , current smoker. -avoid extremes of BPs and volume status post-op, BP low today--> start IVFs and watch UOP -hold amlodipine for low BP -hold ACEI -follow CBC, PRP post-op -PT/OT -DVT Proph with Lovenox -encouraged smoking cessation Documented By: Lisa Matthews (Lisa Matthews MD)
[2016-12-20] MEDS: LACTATED RINGER'S 1000ML 1,000 ML IV SCH ×2 (13:13→21:05)
[2016-12-20 13:44] LABS: HEMATOCRIT 32.7 % (42-52); MEAN CELL VOLUME 95.6 fL (80-100); MEAN CORPUSCULAR HEMOGLOBIN 31.9 pg (25-34); MEAN CORPUSCULAR HGB CONC 33.3 g/dl (32-36); MEAN PLATELET VOLUME 9.7 fL (7.4-10.4); PLATELET COUNT 159 K/uL (130-400); RED BLOOD COUNT 3.42 M/uL (4.7-6.1); WHITE BLOOD COUNT 9.93 K/uL (4.8-10.8)
[2016-12-20] MEDS: ENOXAPARIN 30 MG/0.3 ML SYR SQ SCH (13:44)
[2016-12-20] MEDS: CALCIUM 600MG + VIT D 400 IU TAB PO SCH (21:02)
[2016-12-21] MEDS: ENOXAPARIN 30 MG/0.3 ML SYR SQ SCH ×2 (02:14→07:46)
[2016-12-21 05:55] LABS: HEMATOCRIT 30.5 % (42-52); MEAN CELL VOLUME 95.9 fL (80-100); MEAN CORPUSCULAR HEMOGLOBIN 33.6 pg (25-34); MEAN CORPUSCULAR HGB CONC 35.1 g/dl (32-36); MEAN PLATELET VOLUME 10.2 fL (7.4-10.4); PLATELET COUNT 154 K/uL (130-400); RED BLOOD COUNT 3.18 M/uL (4.7-6.1); WHITE BLOOD COUNT 9.04 K/uL (4.8-10.8)
[2016-12-21 06:31] LABS: BUN/CREATININE RATIO 24.8 (10-20); CALCIUM 8.1 mg/dl (8.5-10.1); CREATININE 1.1 mg/dl (0.60-1.40)
[2016-12-21] MEDS: LACTATED RINGER'S 1000ML 1,000 ML IV SCH ×2 (06:43→17:01)
[2016-12-21] MEDS: CALCIUM 600MG + VIT D 400 IU TAB PO SCH ×2 (07:46→21:46)
[2016-12-21] MEDS: OXYCODONE/ACETAMINOPHEN 5-325 TAB PO PRN ×2 (07:50→16:06)
[2016-12-21 08:00] VITALS: BP 137/80; PULSE 98; TEMP 37.4; O2SAT 91
--- NOTE | 2016-12-21 09:19 | Hospitalist Progress Note ---
Hospitalist Progress Note Date of Service December 21, 2016. (Jana Lerma PA-C) Subjective Pt evaluation today including: conversation w/ patient, physical exam, chart review, lab review, review of studies, review of inpatient medication list Patient seen and evaluated. Did have decreased urine output yesterday and increased IVFs. Reporting well-controlled pain at this time. Pain largely only present with ambulation. He denies all other symptoms at this time. Mild anemia but stable. No signs of active bleeding PT recommending inpatient rehab and will await authorization. Constitutional: No chills, No fever Respiratory: No shortness of breath Cardiovascular: No chest pain Abdomen: No nausea, No pain, No vomiting Musculoskeletal: + joint pain (R hip with ambulation), No calf pain, No swelling Male : No dysuria Neurologic: No numbness/tingling Heme: No abnormal bleeding/bruising Skin: No rash (Jana Lerma PA-C) Medications Current Inpatient Medications Medications (Trade) Dose Ordered Sig/Nahun Route Start Time Stop Time Status Last Admin Dose Admin Ondansetron HCl (Zofran Inj) 4 mg Q6H PRN IV 12/19/16 00:30 01/18/17 00:29 Morphine Sulfate (MoRPHine SULFATE INJ) 2 mg Q1H PRN IV 12/19/16 00:30 01/02/17 00:29 Morphine Sulfate (MoRPHine SULFATE INJ) 4 mg Q1H PRN IV 12/19/16 00:30 01/02/17 00:29 12/19/16 17:08 4 MG Oxycodone/ Acetaminophen (Percocet 5-325mg Tab) `1-2 TABS FOR PAIN 1 TABLET ... Q4H PRN PO 12/19/16 00:30 01/02/17 00:29 12/21/16 07:50 2 TAB Amlodipine Besylate 5 mg 5 mg DAILY PO 12/19/16 09:00 01/18/17 08:59 Future Hold 12/19/16 09:06 5 MG Lactated Ringer's (Lr 1000ml) 1,000 ml @ 100 mls/hr Q10H IV 12/19/16 13:00 01/18/17 12:59 12/21/16 06:43 100 MLS/HR Enoxaparin Sodium (Lovenox Inj) 30 mg Q12H SQ 12/20/16 14:00 01/19/17 13:59 12/21/16 07:46 30 MG Calcium/Vitamin D (Caltrate Plus Tab) 1 tab BID PO 12/20/16 21:00 01/19/17 20:59 12/21/16 07:46 1 TAB (Jana Lerma PA-C) Objective Vital Signs Date Time Temp Pulse Resp B/P Pulse Ox O2 Delivery O2 Flow Rate FiO2 12/21/16 08:00 37.4 98 16 137/80 91 Nasal Cannula 2.0 12/20/16 23:40 Room Air 12/20/16 22:53 36.8 79 16 124/73 94 Nasal Cannula 2.0 12/20/16 16:00 92 Nasal Cannula 2.0 12/20/16 15:13 36.7 73 18 120/68 92 Nasal Cannula 2.0 12/20/16 11:18 36.6 71 16 103/63 91 2.0 12/20/16 11:04 68 92 (Jana Lerma, PA-C) Physical Exam General Appearance: WD/WN, no apparent distress Eyes: sclerae normal ENT: hearing grossly normal Neck: supple, no JVD, trachea midline Respiratory/Chest: lungs clear, normal breath sounds, no respiratory distress, no accessory muscle use Cardiovascular: regular rate, rhythm, no gallop, + systolic murmur, + pertinent finding (pectus excavatum) Abdomen: normal bowel sounds, non tender, soft Extremities: no pedal edema, no calf tenderness, + pertinent finding ( dressings to R hip clean/dry/intact; minimal ecchymosis of surround skin; mild edema; neg erythema) Neurologic/Psychiatric: alert, oriented x 3 Skin: normal color, warm/dry (Jana Lerma, PA-C) Laboratory Results Last 24 Hours Test 12/20/16 13:35 12/21/16 05:35 White Blood Count 9.93 K/uL 9.04 K/uL Red Blood Count 3.42 M/uL 3.18 M/uL Hemoglobin 10.9 g/dL 10.7 g/dL Hematocrit 32.7 % 30.5 % Mean Corpuscular Volume 95.6 fL 95.9 fL Mean Corpuscular Hemoglobin 31.9 pg 33.6 pg Mean Corpuscular Hemoglobin Concent 33.3 g/dl 35.1 g/dl RDW Standard Deviation 47.5 fL 46.7 fL RDW Coefficient of Variation 13.6 % 13.3 % Platelet Count 159 K/uL 154 K/uL Mean Platelet Volume 9.7 fL 10.2 fL Sodium Level 135 mmol/L Potassium Level 4.0 mmol/L Chloride Level 101 mmol/L Carbon Dioxide Level 28 mmol/L Anion Gap 6.0 mmol/L Blood Urea Nitrogen 27 mg/dl Creatinine 1.10 mg/dl Est Creatinine Clear Calc Drug Dose 51.7 ml/min Estimated GFR () 74.1 Estimated GFR (Non- 64.0 BUN/Creatinine Ratio 24.8 Random Glucose 96 mg/dl Calcium Level 8.1 mg/dl (Jana Lerma PA-C) Assessment and Plan Mr. Patel is a 76 y/o male with PMHx of HTN and Aortic Stenosis who presents due to a fall from a ladder with R Hip Fx and is now S/P nailing. Possible Pathologic R Hip Fracture S/P Trochanteric Nailing 12/19: Underlying Osteoporosis - Morphine 2-4 mg IV PRN and Percocet 1-2 tab Q4H PRN - Low Vit D - replete with Calcium and Vit D supplementation - LR at 100 mL/hr and monitor urine output and bladder scan PRN for retention - Gomez D/C'd 12/21 - Orthopedics following - recommendations reviewed Acute Anemia: Hemoconcentration and Mild Blood Loss 2/2 Surgery - Hgb mildly decreased but stable at 10.7 - continue to monitor Moderate Aortic Stenosis: STABLE - Echocardiogram confirmed - Cardiology consulted for pre-operative clearance HTN: STABLE - Continue to hold Amlodipine 5 mg daily and Lisinopril at this time - pending further monitoring may be resumed at a later time DVT Prophylaxis: - Lovenox 30 mg SC daily Disposition: - Await PT/OT evaluations - PT recommending inpatient stay - awaiting authorization - May benefit from bone scan as outpatient - fell from 4-5 rungs up a ladder Continued [facility] stay due to: multiple IV medications needed Discharge planning: rehab hospital (Jana Lerma PA-C) Reviewed: Pt Seen/Exam by Me (Lisa Matthews MD) History Physician Health Advisor Supervision Note: I interviewed and examined the patient. Discussed with ROSA Lerma and agree with findings and plan as documented in the note. Any exceptions or clarifications are listed here: Feels well, pain controlled. No bowel movement in many days. Blood pressure starting to come back up. NAD, AAOx3 RRR 3/6 BENITO at RUSB, no carotid bruits, pectus excavated deformity Lungs CTAB breathing unlabored, slightly diminished BS throughout Abd +BS soft NT ND Ext +TTP over right lateral hip, minimal edema, dressing c/d/i Skin no rashes 76 yo male with mechanical fall resulting in right hip fracture, with HTN, moderate , current smoker. -avoid extremes of BPs and volume status post-op, BP improved today and then restart amlodipine -Continue to hold ACEI -follow CBC, PRP post-op -PT/OT -DVT Proph with Lovenox -encouraged smoking cessation -Can likely discharge to rehabilitation tomorrow Documented By: Lisa Matthews (Lisa Matthews MD)
--- NOTE | 2016-12-21 09:25 | Orthopedic Progress Note ---
Orthopedic Progress Note Date of Service December 21, 2016. Subjective Post OP Day: 2 (R TFN) Reports: feeling well, pain controlled w PO medications, Denies: SOB, chest pain , complaints, light headedness, nausea / vomiting Objective calves soft nontender, N/V intact, dressing C/D/I, A&O x3 THIGH SWOLLEN BUT SOFT Date Time Temp Pulse Resp B/P Pulse Ox O2 Delivery O2 Flow Rate FiO2 12/21/16 08:00 37.4 98 16 137/80 91 Nasal Cannula 2.0 12/20/16 23:40 Room Air 12/20/16 22:53 36.8 79 16 124/73 94 Nasal Cannula 2.0 12/20/16 16:00 92 Nasal Cannula 2.0 12/20/16 15:13 36.7 73 18 120/68 92 Nasal Cannula 2.0 12/20/16 11:18 36.6 71 16 103/63 91 2.0 12/20/16 11:04 68 92 Laboratory Results 24 Hours: Test 12/20/16 13:35 12/21/16 05:35 Hematocrit 32.7 % 30.5 % Hemoglobin 10.9 g/dL 10.7 g/dL Assessment & Plan Assessment: POD 2 s/p Right TFN Plan: PT/OT - WBAT Will likely need Rehab vs SNF depending on how he does with PT Inhouse Planning Pain Management: Percocet, Morphine DVT Prophylaxis: TEDs, SCDs, Lovenox Discharge Planning Discharge Planning: uncertain
[2016-12-21] MEDS ORDERED: DOCUSATE SODIUM 100 MG CAP PO ONE (11:05)
[2016-12-21] MEDS ORDERED: POLYETHYLENE (MIRALAX) 17 GM PACK PO ONE (11:05)
[2016-12-21 12:20] VITALS: BP 143/65; PULSE 85; TEMP 37; O2SAT 91
[2016-12-21 13:48] VITALS: BP 120/65; PULSE 77; O2SAT 93
[2016-12-21 15:25] VITALS: BP 123/70; PULSE 87; TEMP 37.3; O2SAT 93
[2016-12-21] MEDS: DOCUSATE SODIUM 100 MG CAP PO SCH (21:47)
--- NOTE | 2016-12-21 22:12 | Discharge Instructions ---
Discharge Instructions Date of Service December 21, 2016. Admission Reason for Admission: Rt Hip Fracture Discharge Discharge Diagnosis / Problem: Right hip fracture Discharge Goals Goal(s): Decrease discomfort, Improve function Activity Recommendations Activity Limitations: per Instructions/Follow-up section Weightbearing Status: Right weightbearing (as tolerated) . Instructions / Follow-Up Instructions / Follow-Up [facility] DISCHARGE INSTRUCTIONS: HIP FRACTURE SELF CARE INSTRUCTIONS: A. You are to ambulate with a walker or crutches for approximately 6 weeks. B. You are WEIGHT BEARING TOLERATED on your operative lower extremity for at least 6 weeks. C. Wear low heeled shoes with non-slip soles D. Be sure that your floors are free of things that could trip you throw rugs, electrical cords, and small objects. Avoid wet and waxed floors, especially with crutches/walker/cane. E. Try to walk several times a day with rest periods between. F. You may shower 48 hours after surgery and get the incision area wet, but DO NOT soak or submerge incision area in water. (No baths, swimming pools, hot tubs ) G. You may have a large, band-aid like dressing over your incision (Aquacel). This will remain on your incision for 7 days, and then can be removed. You CAN shower with this on. If incision is leaking through the dressing, please call the office . H. Do NOT apply soap or any ointment/lotions directly over incision. I. You may use ice as needed to operative site. SPECIAL CARE INSTRUCTIONS: VERY IMPORTANT TO READ AND REVIEW A. You may be at risk for phlebitis or blood clots. a. Wear surgical stockings (JOSUE hose) for 2 weeks after surgery to improve circulation and reduce swelling. b. Take LOVENOX 30mg SQ every 12 hours for 4 weeks or as directed. This is your blood thinner. c. If you are on Coumadin- you will have daily/weekly blood work to monitor your levels. This will be done by either your family physician/ check writing machine operator (if you are on Coumadin chronically) versus your orthopedic surgeon. Expect a phone call the day of or the day after your blood work is drawn to adjust your dose accordingly. B. There are a few signs you need to watch for after you are home. Call [facility] at [phone] if you experience any of the following: a. If you have a temperature of 101 degrees or higher. b. Sudden increase in pain in your hip not relieved by rest or pain medication. c. Any fluid or drainage from the incision; redness of the incision. d. Shortness of breath or chest pain. B. Please call [facility] at [phone] if you have any questions or concerns about your operation or recovery. C. Call your physician if: a. Temperature is greater than 101 degrees (F). b. Pain is not relieved by prescribed pain medications. c. Increase drainage or redness from incision. d. Unanswered questions or concerns. D. Pain Medication: a. You will be prescribed pain medication upon discharge that should last till your first post-operative appointment. b. If you experience nausea and/or skin rash, discontinue this medication and contact our office for an alternative medication. c. Caution- narcotic pain medication can cause constipation. FOLLOW UP VISIT: Please call [facility] at [phone] to schedule a follow up appointment with Dr. Sood's clinic 10-14 days from the date of your surgery date. Current Hospital Diet Patient's current hospital diet: Regular Diet Discharge Diet Recommended Diet: Regular Diet Procedures Procedures Performed: Right Intertrochanteric hip nailing Pending Studies Studies pending at discharge: no Medical Emergencies . Who to Call and When: Medical Emergencies: If at any time you feel your situation is an emergency, please call 911 immediately. . Non-Emergent Contact Non-Emergency issues call your: Surgeon Call Non-Emergent contact if: temperature is above 101, your pain is not controlled, your pain is worsening, wound has increased drainage, wound has increased redness . "Provider Documentation" section prepared by Jimy Chandra. . Custodian Recommendations Custodian Recommendations: [facility] [place] DISCHARGE INSTRUCTIONS: HIP FRACTURE SELF CARE INSTRUCTIONS: A. You are to ambulate with a walker or crutches for approximately 6 weeks. B. You are WEIGHT BEARING TOLERATED on your operative lower extremity . C. Wear low heeled shoes with non-slip soles D. Be sure that your floors are free of things that could trip you throw rugs, electrical cords, and small objects. Avoid wet and waxed floors, especially with crutches/walker/cane. E. Try to walk several times a day with rest periods between. F. You may shower 48 hours after surgery and get the incision area wet, but DO NOT soak or submerge incision area in water. (No baths, swimming pools, hot tubs ) G. You may have a large, band-aid like dressing over your incision (Aquacel). This will remain on your incision for 7 days, and then can be removed. You CAN shower with this on. If incision is leaking through the dressing, please call the office . H. Do NOT apply soap or any ointment/lotions directly over incision. I. You may use ice as needed to operative site. SPECIAL CARE INSTRUCTIONS: VERY IMPORTANT TO READ AND REVIEW A. You may be at risk for phlebitis or blood clots. a. Wear surgical stockings (JOSUE hose) for 2 weeks after surgery to improve circulation and reduce swelling. b. Take LOVENOX 30mg SQ BID for 2 - 4 weeks or as directed. This is your blood thinner. B. There are a few signs you need to watch for after you are home. Call [facility] at [phone] if you experience any of the following: a. If you have a temperature of 101 degrees or higher. b. Sudden increase in pain in your hip not relieved by rest or pain medication. c. Any fluid or drainage from the incision; redness of the incision. d. Shortness of breath or chest pain. B. Please call [facility] at [phone] if you have any questions or concerns about your operation or recovery. C. Call your physician if: a. Temperature is greater than 101 degrees (F). b. Pain is not relieved by prescribed pain medications. c. Increase drainage or redness from incision. d. Unanswered questions or concerns. D. Pain Medication: a. You will be prescribed pain medication upon discharge that should last till your first post-operative appointment. b. If you experience nausea and/or skin rash, discontinue this medication and contact our office for an alternative medication. c. Caution- narcotic pain medication can cause constipation. FOLLOW UP VISIT: Please call [facility] at [phone] to schedule a follow up appointment with Dr Roeshot 10-14 days from the date of your surgery date. VTE Core Measure Inpt VTE Proph given/why not?: Enoxaparin (Lovenox)SQ, SCD's
[2016-12-21 23:07] VITALS: BP 157/81; PULSE 90; TEMP 37.5; O2SAT 93
[2016-12-22] MEDS: ENOXAPARIN 30 MG/0.3 ML SYR SQ SCH ×2 (02:10→13:46)
[2016-12-22] MEDS: LACTATED RINGER'S 1000ML 1,000 ML IV SCH ×2 (02:15→05:34)
[2016-12-22 05:39] LABS: HEMATOCRIT 29.4 % (42-52); MEAN CELL VOLUME 93.9 fL (80-100); MEAN CORPUSCULAR HEMOGLOBIN 32.3 pg (25-34); MEAN CORPUSCULAR HGB CONC 34.4 g/dl (32-36); MEAN PLATELET VOLUME 9.6 fL (7.4-10.4); PLATELET COUNT 187 K/uL (130-400); RED BLOOD COUNT 3.13 M/uL (4.7-6.1); WHITE BLOOD COUNT 8.89 K/uL (4.8-10.8)
[2016-12-22 06:09] LABS: CREATININE 0.85 mg/dl (0.60-1.40)
[2016-12-22 07:34] VITALS: BP 157/89; PULSE 90; TEMP 37; O2SAT 93
[2016-12-22] MEDS: OXYCODONE/ACETAMINOPHEN 5-325 TAB PO PRN ×3 (07:54→19:08)
[2016-12-22] MEDS: POLYETHYLENE (MIRALAX) 17 GM PACK PO SCH (08:49)
[2016-12-22] MEDS: CALCIUM 600MG + VIT D 400 IU TAB PO SCH ×2 (08:50→21:27)
[2016-12-22] MEDS: DOCUSATE SODIUM 100 MG CAP PO SCH ×2 (08:50→21:27)
--- NOTE | 2016-12-22 10:01 | Orthopedic Progress Note ---
Orthopedic Progress Note Date of Service December 22, 2016. Subjective Post OP Day: 3 Reports: pain controlled w PO medications, Denies: complaints, light headedness , nausea / vomiting Objective calves soft nontender, N/V intact, dressing C/D/I, A&O x3 Date Time Temp Pulse Resp B/P Pulse Ox O2 Delivery O2 Flow Rate FiO2 12/22/16 07:34 37.0 90 16 157/89 93 Nasal Cannula 2.0 12/21/16 23:25 Nasal Cannula 2.0 12/21/16 23:07 37.5 90 14 157/81 93 Nasal Cannula 2.0 12/21/16 15:30 Nasal Cannula 2.0 12/21/16 15:25 37.3 87 18 123/70 93 Nasal Cannula 2.0 12/21/16 13:48 77 93 12/21/16 12:20 37.0 85 16 143/65 91 Nasal Cannula 2.0 Laboratory Results 24 Hours: Test 12/22/16 05:25 Hematocrit 29.4 % Hemoglobin 10.1 g/dL Assessment & Plan Assessment: POD 3 s/p Right TFN Plan: PT/OT - WBAT Will likely need Rehab vs SNF depending on how he does with PT will sign off per geriatric protocol dc instructions written Inhouse Planning Pain Management: Percocet, Morphine DVT Prophylaxis: TEDs, SCDs, Lovenox Discharge Planning Discharge Planning: uncertain
[2016-12-22] MEDS: AMLODIPINE BESYLATE 5 MG TAB PO SCH (11:13)
--- NOTE | 2016-12-22 12:42 | Hospitalist Progress Note ---
Hospitalist Progress Note Date of Service December 22, 2016. (Jana Lerma PA-C) Subjective Pt evaluation today including: conversation w/ patient, physical exam, chart review, review of inpatient medication list Patient seen and evaluated. No acute events overnight. Reporting pain only present with movement but is largely controlled. Continues to participate in PT. Plan is for SNF placement for rehab awaiting approval from insurance and facility - hopefully Friday. Verbalizes no other needs at this time. Reports BM this AM and tolerating diet Constitutional: No chills, No fever Respiratory: No shortness of breath Cardiovascular: No chest pain Abdomen: No nausea, No pain, No vomiting Musculoskeletal: + joint pain (R hip with movement), No calf pain, No swelling Male : No dysuria Neurologic: No numbness/tingling (Jana Lerma, CRYSC) Medications Current Inpatient Medications Medications (Trade) Dose Ordered Sig/Nahun Route Start Time Stop Time Status Last Admin Dose Admin Ondansetron HCl (Zofran Inj) 4 mg Q6H PRN IV 12/19/16 00:30 01/18/17 00:29 Morphine Sulfate (MoRPHine SULFATE INJ) 2 mg Q1H PRN IV 12/19/16 00:30 01/02/17 00:29 Morphine Sulfate (MoRPHine SULFATE INJ) 4 mg Q1H PRN IV 12/19/16 00:30 01/02/17 00:29 12/19/16 17:08 4 MG Oxycodone/ Acetaminophen (Percocet 5-325mg Tab) `1-2 TABS FOR PAIN 1 TABLET ... Q4H PRN PO 12/19/16 00:30 01/02/17 00:29 12/22/16 12:14 2 TAB Enoxaparin Sodium (Lovenox Inj) 30 mg Q12H SQ 12/20/16 14:00 01/19/17 13:59 12/22/16 02:10 30 MG Calcium/Vitamin D (Caltrate Plus Tab) 1 tab BID PO 12/20/16 21:00 01/19/17 20:59 12/22/16 08:50 1 TAB Docusate Sodium (coLACE CAP) 100 mg BID PO 12/21/16 21:00 01/20/17 20:59 12/22/16 08:50 100 MG Polyethylene (Miralax Powder Packet) 17 gm DAILY PO 12/22/16 09:00 01/21/17 08:59 Amlodipine Besylate (Norvasc Tab) 5 mg QAM PO 12/22/16 09:00 01/21/17 08:59 12/22/16 11:13 5 MG Lisinopril (Zestril Tab) 40 mg DAILY PO 12/23/16 09:00 01/22/17 08:59 (Jana Lerma PA-C) Objective Vital Signs Date Time Temp Pulse Resp B/P Pulse Ox O2 Delivery O2 Flow Rate FiO2 12/22/16 07:45 Nasal Cannula 2.0 12/22/16 07:34 37.0 90 16 157/89 93 Nasal Cannula 2.0 12/21/16 23:25 Nasal Cannula 2.0 12/21/16 23:07 37.5 90 14 157/81 93 Nasal Cannula 2.0 12/21/16 15:30 Nasal Cannula 2.0 12/21/16 15:25 37.3 87 18 123/70 93 Nasal Cannula 2.0 12/21/16 13:48 77 93 (Jana Lerma, PA-C) Physical Exam General Appearance: WD/WN, no apparent distress, + thin Eyes: sclerae normal ENT: hearing grossly normal Neck: supple, no JVD, trachea midline Respiratory/Chest: lungs clear, normal breath sounds, no respiratory distress, no accessory muscle use Cardiovascular: regular rate, rhythm, no gallop, + systolic murmur, + pertinent finding (pectus excavatum) Abdomen: normal bowel sounds, non tender, soft Extremities: no pedal edema, no calf tenderness Neurologic/Psychiatric: alert, oriented x 3 Skin: normal color, warm/dry (Jana Lerma, PA-C) Laboratory Results Last 24 Hours Test 12/22/16 05:25 White Blood Count 8.89 K/uL Red Blood Count 3.13 M/uL Hemoglobin 10.1 g/dL Hematocrit 29.4 % Mean Corpuscular Volume 93.9 fL Mean Corpuscular Hemoglobin 32.3 pg Mean Corpuscular Hemoglobin Concent 34.4 g/dl RDW Standard Deviation 44.7 fL RDW Coefficient of Variation 12.9 % Platelet Count 187 K/uL Mean Platelet Volume 9.6 fL Creatinine 0.85 mg/dl Est Creatinine Clear Calc Drug Dose 66.9 ml/min Estimated GFR () 96.7 Estimated GFR (Non- 83.5 (Jana Lerma PA-C) Assessment and Plan Mr. Patel is a 76 y/o male with PMHx of HTN and Aortic Stenosis who presents due to a fall from a ladder with R Hip Fx and is now S/P nailing. Possible Pathologic R Hip Fracture S/P Trochanteric Nailing 12/19: Underlying Osteoporosis - Morphine 2-4 mg IV PRN and Percocet 1-2 tab Q4H PRN - Low Vit D - replete with Calcium and Vit D supplementation - Orthopedics following - recommendations reviewed - signing off - DC instructions given Acute Anemia: Hemoconcentration and Mild Blood Loss 08/29 Surgery: STABLE - Continue to monitor Moderate Aortic Stenosis: STABLE - Echocardiogram confirmed and Cardiology consulted for pre-operative clearance HTN: STABLE - Amlodipine 5 mg daily and Lisinopril 40 mg daily DVT Prophylaxis: - Lovenox 30 mg SC daily Disposition: - PT/OT evaluations - PT recommending inpatient stay - awaiting authorization likely Friday given commercial insurance - May benefit from bone scan as outpatient - fell from 4-5 rungs up a ladder Discharge planning: [facility] facility (Jana Lerma PA-C) Reviewed: Pt Seen/Exam by Me (Lisa Matthews MD) History Physician Legal Billing Analyst Supervision Note: I interviewed and examined the patient. Discussed with ROSA Lerma and agree with findings and plan as documented in the note. Any exceptions or clarifications are listed here: Feels well, pain controlled. Moved his bowels. Was ready for discharge today but authorization from insurance not able to be done over the holiday weekend NAD, AAOx3 RRR 3/6 BENITO at RUSB, no carotid bruits, pectus excavated deformity Lungs CTAB breathing unlabored, slightly diminished BS throughout Abd +BS soft NT ND Ext +TTP over right lateral hip, minimal edema, dressing c/d/i Skin no rashes 76 yo male with mechanical fall resulting in right hip fracture, with HTN, moderate , current smoker. -avoid extremes of BPs and volume status post-op, BP increased today-DC IV fluids and can restart EDDIE inhibitor in the morning -PT/OT -DVT Proph with Lovenox -encouraged smoking cessation -Can discharge to rehabilitation whenever authorization goes through Documented By: Lisa Matthews (Lisa Matthews MD)
[2016-12-22 15:07] VITALS: BP 113/68; PULSE 74; TEMP 36.6; O2SAT 94
[2016-12-22 23:11] VITALS: BP 123/72; PULSE 86; TEMP 37; O2SAT 91
[2016-12-23] MEDS: ENOXAPARIN 30 MG/0.3 ML SYR SQ SCH ×2 (03:04→13:59)
[2016-12-23 05:58] VITALS: BP 135/78; PULSE 82; TEMP 37.2; O2SAT 93
[2016-12-23] MEDS: AMLODIPINE BESYLATE 5 MG TAB PO SCH (08:00)
[2016-12-23] MEDS: CALCIUM 600MG + VIT D 400 IU TAB PO SCH ×2 (08:00→21:33)
[2016-12-23] MEDS: POLYETHYLENE (MIRALAX) 17 GM PACK PO SCH (08:01)
[2016-12-23] MEDS: OXYCODONE/ACETAMINOPHEN 5-325 TAB PO PRN ×3 (08:06→21:34)
[2016-12-23] MEDS: DOCUSATE SODIUM 100 MG CAP PO SCH ×2 (09:12→21:33)
[2016-12-23] MEDS: LISINOPRIL 40 MG TAB PO SCH (09:12)
--- NOTE | 2016-12-23 10:12 | Hospitalist Progress Note ---
Hospitalist Progress Note Date of Service December 23, 2016. Subjective Pt evaluation today including: conversation w/ patient, physical exam, chart review, review of studies, review of inpatient medication list Patient seen and evaluated. No acute events overnight. Reporting good pain control and largely just experiencing pain with movement. Does not utilize pain medication frequently. Reading OT note it mentions that he was having difficulty ambulating due to pain. Did emphasize utilizing pain medication before the pain gets more severe. Stated "I probably should wait so I don't over do it". Did mention that the amount given and how frequently is controlled and to let staff know if he is having increased pain Did report a good bowel movement the other day and a small one recently. He denies constipation and relayed that Miralax available. Feels that he is improving and reports taking a walk around the [place] today. Awaiting rehab placement. Constitutional: No chills, No fever Respiratory: No shortness of breath Cardiovascular: No chest pain Abdomen: No diarrhea, No nausea, No pain, No vomiting Musculoskeletal: + joint pain (R hip pain mostly with movement), No calf pain, No swelling Neurologic: No numbness/tingling Medications Current Inpatient Medications Medications (Trade) Dose Ordered Sig/Nahun Route Start Time Stop Time Status Last Admin Dose Admin Ondansetron HCl (Zofran Inj) 4 mg Q6H PRN IV 12/19/16 00:30 01/18/17 00:29 Morphine Sulfate (MoRPHine SULFATE INJ) 2 mg Q1H PRN IV 12/19/16 00:30 01/02/17 00:29 Morphine Sulfate (MoRPHine SULFATE INJ) 4 mg Q1H PRN IV 12/19/16 00:30 01/02/17 00:29 12/19/16 17:08 4 MG Oxycodone/ Acetaminophen (Percocet 5-325mg Tab) `1-2 TABS FOR PAIN 1 TABLET ... Q4H PRN PO 12/19/16 00:30 01/02/17 00:29 12/23/16 08:06 2 TAB Enoxaparin Sodium (Lovenox Inj) 30 mg Q12H SQ 12/20/16 14:00 01/19/17 13:59 12/23/16 03:04 30 MG Calcium/Vitamin D (Caltrate Plus Tab) 1 tab BID PO 12/20/16 21:00 01/19/17 20:59 12/23/16 08:00 1 TAB Docusate Sodium (coLACE CAP) 100 mg BID PO 12/21/16 21:00 01/20/17 20:59 12/23/16 09:12 100 MG Polyethylene (Miralax Powder Packet) 17 gm DAILY PO 12/22/16 09:00 01/21/17 08:59 Amlodipine Besylate (Norvasc Tab) 5 mg QAM PO 12/22/16 09:00 01/21/17 08:59 12/23/16 08:00 5 MG Lisinopril (Zestril Tab) 40 mg DAILY PO 12/23/16 09:00 01/22/17 08:59 12/23/16 09:12 40 MG Objective Vital Signs Date Time Temp Pulse Resp B/P Pulse Ox O2 Delivery O2 Flow Rate FiO2 12/23/16 08:36 Room Air 12/23/16 05:58 37.2 82 20 135/78 93 Room Air 12/23/16 00:05 Room Air 12/22/16 23:11 37.0 86 16 123/72 91 Room Air 12/22/16 15:50 Room Air 12/22/16 15:07 36.6 74 18 113/68 94 Room Air Physical Exam General Appearance: WD/WN, no apparent distress Eyes: sclerae normal Neck: supple, no JVD, trachea midline Respiratory/Chest: lungs clear, normal breath sounds, no respiratory distress, no accessory muscle use Cardiovascular: regular rate, rhythm, no gallop, + systolic murmur Abdomen: normal bowel sounds, non tender, soft, + distended (mild but soft) Extremities: no pedal edema, no calf tenderness, + pertinent finding ( increased ecchymosis around site on incisions of R hip; continues to be mildly edematous; dressings applied with that are largely clean/dry/intact with some evidence of serosang drainage; sensation grossly intact; gross motor intact with limitations due to pain at hip; adequate pulses) Neurologic/Psychiatric: alert, oriented x 3 Skin: normal color, warm/dry Assessment and Plan Mr. Patel is a 76 y/o male with PMHx of HTN and Aortic Stenosis who presents due to a fall from a ladder with R Hip Fx and is now S/P nailing. Possible Pathologic R Hip Fracture S/P Trochanteric Nailing 12/19: Underlying Osteoporosis - Morphine 2-4 mg IV PRN and Percocet 1-2 tab Q4H PRN - Low Vit D - replete with Calcium and Vit D supplementation - Orthopedics following - signed off - DC instructions given Acute Anemia: Hemoconcentration and Mild Blood Loss 08/29 Surgery: STABLE - Continue to monitor Moderate Aortic Stenosis: STABLE - Echocardiogram confirmed and Cardiology consulted for pre-operative clearance HTN: STABLE - Amlodipine 5 mg daily and Lisinopril 40 mg daily DVT Prophylaxis: - Lovenox 30 mg SC daily Disposition: Medically suitable for D/C to rehab when arrangements complete - PT/OT evaluations - PT and OT recommending inpatient stay - awaiting authorization likely Friday given commercial insurance and holiday - May benefit from bone scan as outpatient - fell from 4-5 rungs up a ladder Continued [facility] stay due to: ambulation difficulties Discharge planning: snf facility
[2016-12-23 15:05] VITALS: BP 132/77; PULSE 98; TEMP 37.4; O2SAT 91
[2016-12-23 23:02] VITALS: BP 113/65; PULSE 81; TEMP 37.3; O2SAT 91
[2016-12-24] MEDS: ENOXAPARIN 30 MG/0.3 ML SYR SQ SCH ×2 (01:58→13:25)
[2016-12-24 07:11] VITALS: BP 143/77; PULSE 83; TEMP 37.3; O2SAT 91
[2016-12-24] MEDS: POLYETHYLENE (MIRALAX) 17 GM PACK PO SCH (08:45)
[2016-12-24] MEDS: DOCUSATE SODIUM 100 MG CAP PO SCH ×2 (08:45→21:10)
[2016-12-24] MEDS: AMLODIPINE BESYLATE 5 MG TAB PO SCH (08:46)
[2016-12-24] MEDS: LISINOPRIL 40 MG TAB PO SCH (08:46)
[2016-12-24] MEDS: CALCIUM 600MG + VIT D 400 IU TAB PO SCH ×2 (08:46→21:10)
[2016-12-24] MEDS ORDERED: MRLP17 PO (10:47)
[2016-12-24] MEDS ORDERED: OXYC-57 PO (10:47)
[2016-12-24] MEDS ORDERED: LVNIS30 SQ (10:47)
[2016-12-24] MEDS ORDERED: CLC100 PO (10:47)
[2016-12-24] MEDS ORDERED: CALCTAB7 PO (10:47)
--- NOTE | 2016-12-24 10:51 | Discharge Instructions ---
Discharge Instructions Date of Service December 24, 2016. Admission Reason for Admission: Rt Hip Fracture Discharge Discharge Diagnosis / Problem: Right hip fracture s/p pinning, HTN Discharge Goals Goal(s): Improve function, Increase independence Activity Recommendations Activity Level: Assistance Required Therapies: Physical Therapy, Occupational Therapy Lifting Limitations: none Exercise/Sports Limitations: as tolerated Shower/Bathe: no limitations . Additional Information Patient informed of condition: Yes Advance Directives: No DNR: No Level of Care: Skilled (with rehab) Communicable Disease: No Prognosis: Stable Oxygen at (LPM): no Gomez Catheter: No Instructions / Follow-Up Instructions / Follow-Up Medications: refer to list for new medications - LOVENOX: needs to take BID for the next 4 weeks for DVT prophylaxis after surgery - PERCOCET: as needed for pain - MIRALAX and COLACE: as needed for constipation related to narcotics, pain - VITAMIN D: due to pathological hip fracture FOLLOW UP - PCP one week after d/c from SNF with rehab - please have physician at SNF see this week please refer to instruction from orthopedic surgeon for details of activity/ limitations and ortho follow up Current Hospital Diet Patient's current hospital diet: Regular Diet Discharge Diet Recommended Diet: Regular Diet Procedures Procedures Performed: Right Intertrochanteric hip nailing Pending Studies Studies pending at discharge: no Physician Orders On Transfer POLST Discussion: Not Applicable Medical Emergencies . Who to Call and When: Medical Emergencies: If at any time you feel your situation is an emergency, please call 911 immediately. . Non-Emergent Contact Non-Emergency issues call your: Primary Care Provider Call Non-Emergent contact if: you have a fever, your pain is not controlled, your pain is worsening, you have any medication questions . . "Provider Documentation" section prepared by Markell Gallardo. . Advertising Columnist Recommendations Advertising Columnist Recommendations: [facility] DISCHARGE INSTRUCTIONS: HIP FRACTURE SELF CARE INSTRUCTIONS: A. You are to ambulate with a walker or crutches for approximately 6 weeks. B. You are WEIGHT BEARING TOLERATED on your operative lower extremity . C. Wear low heeled shoes with non-slip soles D. Be sure that your floors are free of things that could trip you throw rugs, electrical cords, and small objects. Avoid wet and waxed floors, especially with crutches/walker/cane. E. Try to walk several times a day with rest periods between. F. You may shower 48 hours after surgery and get the incision area wet, but DO NOT soak or submerge incision area in water. (No baths, swimming pools, hot tubs ) G. You may have a large, band-aid like dressing over your incision (Aquacel). This will remain on your incision for 7 days, and then can be removed. You CAN shower with this on. If incision is leaking through the dressing, please call the office . H. Do NOT apply soap or any ointment/lotions directly over incision. I. You may use ice as needed to operative site. SPECIAL CARE INSTRUCTIONS: VERY IMPORTANT TO READ AND REVIEW A. You may be at risk for phlebitis or blood clots. a. Wear surgical stockings (JOSUE hose) for 2 weeks after surgery to improve circulation and reduce swelling. b. Take LOVENOX 30mg SQ BID for 2 - 4 weeks or as directed. This is your blood thinner. B. There are a few signs you need to watch for after you are home. Call [facility] at [phone] if you experience any of the following: a. If you have a temperature of 101 degrees or higher. b. Sudden increase in pain in your hip not relieved by rest or pain medication. c. Any fluid or drainage from the incision; redness of the incision. d. Shortness of breath or chest pain. B. Please call [facility] at [phone] if you have any questions or concerns about your operation or recovery. C. Call your physician if: a. Temperature is greater than 101 degrees (F). b. Pain is not relieved by prescribed pain medications. c. Increase drainage or redness from incision. d. Unanswered questions or concerns. D. Pain Medication: a. You will be prescribed pain medication upon discharge that should last till your first post-operative appointment. b. If you experience nausea and/or skin rash, discontinue this medication and contact our office for an alternative medication. c. Caution- narcotic pain medication can cause constipation. FOLLOW UP VISIT: Please call [facility] at [phone] to schedule a follow up appointment with Dr Sood 10-14 days from the date of your surgery date. Core Measure Problem Core Measures: None [place] Drug Monitoring Program Search Results: no issues identified
[2016-12-24 10:56] VITALS: BP_SYST 132; BP_SYST 143; BP_DIAS 75; BP_DIAS 77; PULSE 83; TEMP 37; TEMP 37.3; O2SAT 91
--- NOTE | 2016-12-24 14:10 | Progress Note ---
Subjective Date of Service: December 24, 2016. Subjective Pt evaluation today including: conversation w/ patient, physical exam, review of inpatient medication list Pain: controlled PO Intake: adequate Voiding: no voiding problems patient sitting in bed comfortably, no issues overnight unfortunately cannot be placed in SNF today, hopeful for tomorrow per CM Review of Systems Musculoskeletal: + joint pain (hip pain on movement) All Other Systems: Reviewed and Negative Medications Current Inpatient Medications Medications (Trade) Dose Ordered Sig/Nahun Route Start Time Stop Time Status Last Admin Dose Admin Ondansetron HCl (Zofran Inj) 4 mg Q6H PRN IV 12/19/16 00:30 01/18/17 00:29 Morphine Sulfate (MoRPHine SULFATE INJ) 2 mg Q1H PRN IV 12/19/16 00:30 01/02/17 00:29 Morphine Sulfate (MoRPHine SULFATE INJ) 4 mg Q1H PRN IV 12/19/16 00:30 01/02/17 00:29 12/19/16 17:08 4 MG Oxycodone/ Acetaminophen (Percocet 5-325mg Tab) `1-2 TABS FOR PAIN 1 TABLET ... Q4H PRN PO 12/19/16 00:30 01/02/17 00:29 12/23/16 21:34 2 TAB Enoxaparin Sodium (Lovenox Inj) 30 mg Q12H SQ 12/20/16 14:00 01/19/17 13:59 12/24/16 13:25 30 MG Calcium/Vitamin D (Caltrate Plus Tab) 1 tab BID PO 12/20/16 21:00 01/19/17 20:59 12/24/16 08:46 1 TAB Docusate Sodium (coLACE CAP) 100 mg BID PO 12/21/16 21:00 01/20/17 20:59 12/24/16 08:45 100 MG Polyethylene (Miralax Powder Packet) 17 gm DAILY PO 12/22/16 09:00 01/21/17 08:59 Amlodipine Besylate (Norvasc Tab) 5 mg QAM PO 12/22/16 09:00 01/21/17 08:59 12/24/16 08:46 5 MG Lisinopril (Zestril Tab) 40 mg DAILY PO 12/23/16 09:00 01/22/17 08:59 12/24/16 08:46 40 MG Objective Vital Signs Date Time Temp Pulse Resp B/P Pulse Ox O2 Delivery O2 Flow Rate FiO2 12/24/16 10:56 37.3 83 18 91 Room Air 12/24/16 07:47 Room Air 12/24/16 07:11 37.3 83 18 143/77 91 Room Air 12/23/16 23:15 Room Air 12/23/16 23:02 37.3 81 16 113/65 91 Room Air 12/23/16 15:30 Room Air 12/23/16 15:05 37.4 98 18 132/77 91 Room Air Physical Exam General Appearance: WD/WN, no apparent distress Eyes: normal inspection, EOMI, sclerae normal ENT: normal ENT inspection, hearing grossly normal, pharynx normal Neck: supple, no adenopathy, no JVD, trachea midline Respiratory/Chest: chest non-tender, lungs clear, normal breath sounds, no respiratory distress, no accessory muscle use Cardiovascular: regular rate, rhythm, no edema, no gallop, no JVD, no murmur Abdomen: normal bowel sounds, non tender, soft, no organomegaly Extremities: normal inspection, no pedal edema, no calf tenderness, normal capillary refill, pelvis stable, + pertinent finding (right hip tender, decreased ROM) 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 Patel is a 76 y/o male with PMHx of HTN and Aortic Stenosis who presents due to a fall from a ladder with R Hip Fx and is now S/P nailing. Possible Pathologic R Hip Fracture S/P Trochanteric Nailing 12/19: Underlying Osteoporosis - Percocet 1 tab Q4H PRN - Low Vit D - replete with Calcium and Vit D supplementation, continue on discharge - Orthopedics following - signed off - DC instructions given Acute Anemia: Hemoconcentration and Mild Blood Loss 2/ Surgery: STABLE Moderate Aortic Stenosis: STABLE - Echocardiogram confirmed and Cardiology consulted for pre-operative clearance HTN: STABLE - Amlodipine 5 mg daily and Lisinopril 40 mg daily DVT Prophylaxis: - Lovenox 30 mg SC BID, needs to continue for 4 weeks Disposition: Medically suitable for D/C to rehab when arrangements complete - plan for tomorrow per CM, awaiting bed and insurance auth Continued [facility] stay due to: ambulation difficulties Discharge planning: senior care facility
[2016-12-24 14:56] VITALS: BP 122/67; PULSE 84; TEMP 37.2; O2SAT 93
[2016-12-24] MEDS: OXYCODONE/ACETAMINOPHEN 5-325 TAB PO PRN (15:28)
[2016-12-24 23:13] VITALS: BP 128/76; PULSE 91; TEMP 37.1; O2SAT 91
[2016-12-25] MEDS: ENOXAPARIN 30 MG/0.3 ML SYR SQ SCH ×2 (01:36→13:14)
[2016-12-25 07:05] VITALS: BP 132/75; PULSE 87; TEMP 37; O2SAT 90
[2016-12-25 07:56] LABS: HEMATOCRIT 26.1 % (42-52); MEAN CELL VOLUME 92.9 fL (80-100); MEAN CORPUSCULAR HEMOGLOBIN 33.1 pg (25-34); MEAN CORPUSCULAR HGB CONC 35.6 g/dl (32-36); MEAN PLATELET VOLUME 8.9 fL (7.4-10.4); PLATELET COUNT 249 K/uL (130-400); RED BLOOD COUNT 2.81 M/uL (4.7-6.1); WHITE BLOOD COUNT 7.91 K/uL (4.8-10.8)
[2016-12-25 08:32] LABS: CREATININE 0.91 mg/dl (0.60-1.40)
[2016-12-25] MEDS: CALCIUM 600MG + VIT D 400 IU TAB PO SCH (08:35)
[2016-12-25] MEDS: AMLODIPINE BESYLATE 5 MG TAB PO SCH (08:35)
[2016-12-25] MEDS: DOCUSATE SODIUM 100 MG CAP PO SCH (08:35)
[2016-12-25] MEDS: LISINOPRIL 40 MG TAB PO SCH (08:36)
[2016-12-25] MEDS: POLYETHYLENE (MIRALAX) 17 GM PACK PO SCH (08:36)
--- NOTE | 2016-12-25 14:33 | Discharge Summary ---
Discharge Summary Date of Service December 25, 2016. Discharge Summary Admission Date: December 18, 2016 at 22:35 Discharge Date: December 25, 2016 Discharge Disposition: assisted facility Principal Diagnosis: R Hip Fx S/P Nailing Problems/Secondary Diagnoses: 1. HTN 2. Aortic Stenosis Procedures: 1. ECHOCARDIOGRAM * -- Conclusions -- * Limited views were obtained. * There is mild concentric left ventricular hypertrophy. * Left ventricular systolic function is normal at 60-65% * Probably moderate based on 2-D images. Not severe. * There is moderate mitral annular calcification. 2. RIGHT FEMUR 2 VIEWS ROUTINE FINDINGS: The patient is status post internal fixation of a right femoral intertrochanteric fracture. There is a short intramedullary taz and interlocking femoral neck pin. The hardware appears intact. Skin ronda are noted. The distal femur is intact. The transfixed fracture is slightly impacted and demonstrates 9 mm of medial and posterior displacement. IMPRESSION: Postoperative changes consistent with internal fixation of a right femoral intertrochanteric fracture. The hardware appears intact. There is improved anatomic alignment from the preoperative study with mild displacement as described above Consultations: 1. Orthopedic Surgery 2. Cardiology 3. PT/OT Medication Reconciliation New Medications: Calcium Carbonate-Vitamin D W/ (Caltrate 600 Plus) 1 Tab Tab 1 TAB PO BID, #60 TAB 3 Refills Docusate Sodium (Docusate Sodium) 100 Mg Cap 100 MG PO BID, #60 CAP 0 Refills take with 8oz water Enoxaparin (Lovenox) 30 Mg/0.3 Ml Inj 30 MG SQ Q12H for 28 Days, #56 DOSE 0 Refills Oxycodone/Acetaminophen 5MG/325MG (Percocet 5MG/325MG) Tab 1 TAB PO Q4H PRN for Pain, #20 TAB 0 Refills PAIN Polyethylene (Miralax) 17 Gm Pow 17 GM PO DAILY PRN for Constipation MDD 17gm, #1 BTL 0 Refills Continued Medications: Amlodipine (Norvasc) 5 Mg Tab 5 MG PO DAILY, TAB Lisinopril (Zestril) 40 Mg Tab 40 MG PO DAILY, TAB Discharge Exam Review of Systems: Constitutional: No chills, No fever Respiratory: No cough, No shortness of breath Cardiovascular: No chest pain Abdomen: No constipation, No diarrhea, No nausea, No pain, No vomiting Musculoskeletal: + joint pain (R hip (improving - mostly with weightbaring)) , No calf pain, No swelling Genitourinary - Male: No dysuria Neurologic: No numbness/tingling, No weakness Physical Exam: General Appearance: WD/WN, no apparent distress Eyes: sclerae normal ENT: pharynx normal Neck: supple, no JVD, trachea midline Respiratory/Chest: lungs clear, normal breath sounds, no respiratory distress, no accessory muscle use Cardiovascular: regular rate, rhythm, no gallop, + systolic murmur, + pertinent finding (pectus excavatum) Abdomen / GI: normal bowel sounds, non tender, soft Extremities: no calf tenderness, normal capillary refill, no pedal edema, + pertinent finding (R hip with extensive bruising around operative site; dressings are clean/dry/intact; surrounding skin without erythema or warmth) Neurologic/Psychiatric: no motor/sensory deficits, alert Hospital Course ADMISSION: Patient is a poor historian. This is a 76 yo m with HTN that is a direct admit from [facility] for a right hip fracture. The patient states that he was painting this afternoon on a ladder when he lost his balance and fell onto his right side. This occurred at approx 1340. He quickly went to [facility] for evaluation and he was found to have a right hip fracture. Dr valdes was contacted and it was advised that the patient be admitted to [place] for further treatment. Patient states that his pain is a dull 1/10 over the right hip if he is just resting. He does note that with any movement it is an 8-9/10 pain which resolves as soon as he stops moving. he denies any numbness/ tingling of the lower extremity. He has no history of KS or TIA/ stroke. He is only treated for HTN with amlodipine and Lisinopril. He has no history of DM. He has had not previous surgeries. He smokes 1 PPD > 30 years. On assessment patient had a 3/6 systolic murmur noted that radiated to the carotids as well as an occasional skipped heart beat. He has never been evaluated for the murmur. Able to walk a block and a flight of stairs without shortness of breath. HOSPITAL COURSE: Mr. Patel was a direct admission from [place] due to a proximal R femoral fx who is S/P R Intertrochanteric Nailing on 12/[address] Sood. This is considered a possible pathologic fracture given the fall from a short distance likely from osteoporosis. Vitamin D level obtained which was low and he was started on Calcium and Vit D supplementation. He may benefit from bone scans for further evaluation as an outpatient. Cardiology was consulted to assist with pre-operative clearance due to a significant murmur on examination. Echo reveals moderate aortic stenosis. PT/OT evaluations performed recommending inpatient rehab. All home medications continued. He was D/C to [facility]. Total Time Spent: Greater than 30 minutes This includes examination of the patient, discharge planning, medication reconciliation, and communication with other providers. Discharge Instructions Please refer to the electronic Patient Visit Report (Discharge Instructions) for additional information. Additional Copies To Maik Grubbs M.D. ([place])
--- NOTE | 2016-12-30 11:06 | OPERATIVE REPORT ---
DATE OF OPERATION: 12/19/2016 ADDENDUM WAVE SOLDER OFFBEARER: Froy Brown PA-C. Mr. Brown was essential in all portions of the procedure including positioning, fracture reduction, prepping, draping, surgical brace maker, wound closure, and dressing application. I attest to the content of the Intraoperative Record and any orders documented therein. Any exception s are noted below.
== END 2016-12-25 15:30 | DRG 481 ==
LOC: C.MSW 22:35
PROVIDERS: ADMIT Internal Medicine; ATTEND Internal Medicine
PROC: 0QS634Z Reposition Right Upper Femur with Internal Fixation Device, Percutaneous Approach (ICD-10-PCS; principal; 2016-12-19 08:30)
DX: M80.051A Age-related osteoporosis with current pathological fracture, right femur, initial encounter for fracture (principal); D62 Acute posthemorrhagic anemia; I35.0 Nonrheumatic aortic (valve) stenosis; R00.2 Palpitations; I11.9 Hypertensive heart disease without heart failure; F17.200 Nicotine dependence, unspecified, uncomplicated; Z51.81 Encounter for therapeutic drug level monitoring; Z79.899 Other long term (current) drug therapy; W11.XXXA Fall on and from ladder, initial encounter; Y93.H9 Activity, other involving exterior property and land maintenance, building and construction; Y99.8 Other external cause status

== ENCOUNTER → 2017-08-19 | Outpatient (CLI) | payer BC ==
[~2017-08-19] MED LIST: AMLO-110 PO; CALCTAB7 PO; CLC100 PO; LISI40TA PO; LVNIS30 SQ; MRLP17 PO; OXYC-57 PO
[2017-08-19 19:02] LABS: BASO % 0.3 %; BASO ABS # 0.02 K/uL (0-0.2); EOS % 1.9 %; EOS ABS # 0.13 K/uL (0-0.5); HEMATOCRIT 39.6 % (42-52); HEMOGLOBIN 14.1 g/dL (14.0-18.0); IG# 0.01 K/uL (0.00-0.02); LYMPH % 34.8 %; LYMPH ABS # 2.35 K/uL (1.2-3.4); MEAN CELL VOLUME 93.2 fL (80-100); MEAN CORPUSCULAR HEMOGLOBIN 33.2 pg (25-34); MEAN CORPUSCULAR HGB CONC 35.6 g/dl (32-36); MEAN PLATELET VOLUME 9.8 fL (7.4-10.4); MONO % 7.1 %; MONO ABS # 0.48 K/uL (0.11-0.59); NEUT % 55.8 %; NEUT ABS # 3.76 K/uL (1.4-6.5); PLATELET COUNT 282 K/uL (130-400); RED CELL DISTRIBUTION WIDTH CV 13.1 % (11.5-14.5); RED CELL DISTRIBUTION WIDTH SD 44.8 fL (36.4-46.3); WHITE BLOOD COUNT 6.75 K/uL (4.8-10.8)
[2017-08-19 19:18] LABS: ALBUMIN 3.7 gm/dl (3.4-5.0); ALT/SGPT 23 U/L (12-78); AST/SGOT 17 U/L (15-37); BLOOD UREA NITROGEN 25 mg/dl (7-18); CALCIUM 9.5 mg/dl (8.5-10.1); CARBON DIOXIDE 27 mmol/L (21-32); CHOLESTEROL 163 mg/dl (0-200); CREATININE 1.16 mg/dl (0.60-1.40); GLUCOSE 94 mg/dl (70-99); POTASSIUM 3.8 mmol/L (3.5-5.1); SODIUM 133 mmol/L (136-145)
[2017-08-19 19:21] LABS: ALKALINE PHOSPHATASE 88 U/L (45-117); LDL CHOLESTEROL CALCULATED 97 mg/dl; TOTAL PROTEIN 7.8 gm/dl (6.4-8.2)
== END | disposition home or self-care (01) ==
LOC: C.LABSPEC 17:49
PROVIDERS: ATTEND Family Medicine
DX: I10 Essential (primary) hypertension (principal); E55.9 Vitamin D deficiency, unspecified

== ENCOUNTER → 2018-02-19 | Outpatient (CLI) | payer BC ==
[~2018-02-19] MED LIST changes: -AMLO-110 PO; +AMLO5TAB3 PO
[2018-02-19 18:17] LABS: BASO % 0.5 %; BASO ABS # 0.03 K/uL (0-0.2); EOS ABS # 0.13 K/uL (0-0.5); HEMATOCRIT 40.2 % (42-52); IG# 0.01 K/uL (0.00-0.02); LYMPH % 33.1 %; LYMPH ABS # 2.16 K/uL (1.2-3.4); MEAN CELL VOLUME 92.2 fL (80-100); MEAN CORPUSCULAR HEMOGLOBIN 32.1 pg (25-34); MEAN CORPUSCULAR HGB CONC 34.8 g/dl (32-36); MEAN PLATELET VOLUME 9.8 fL (7.4-10.4); MONO % 9.2 %; PLATELET COUNT 285 K/uL (130-400); RED CELL DISTRIBUTION WIDTH CV 13.2 % (11.5-14.5); RED CELL DISTRIBUTION WIDTH SD 44.8 fL (36.4-46.3); WHITE BLOOD COUNT 6.53 K/uL (4.8-10.8)
[2018-02-19 18:34] LABS: ALBUMIN 3.6 gm/dl (3.4-5.0); ALKALINE PHOSPHATASE 86 U/L (45-117); ALT/SGPT 20 U/L (12-78); AST/SGOT 16 U/L (15-37); BLOOD UREA NITROGEN 22 mg/dl (7-18); CALCIUM 9.1 mg/dl (8.5-10.1); CARBON DIOXIDE 23 mmol/L (21-32); CHOLESTEROL 145 mg/dl (0-200); CREATININE 1.14 mg/dl (0.60-1.40); GLUCOSE 94 mg/dl (70-99); LDL CHOLESTEROL CALCULATED 79 mg/dl; SODIUM 131 mmol/L (136-145)
== END | disposition home or self-care (01) ==
LOC: C.LABSPEC 17:51
PROVIDERS: ATTEND Family Medicine
DX: I10 Essential (primary) hypertension (principal); E55.9 Vitamin D deficiency, unspecified

== ENCOUNTER → 2018-03-10 | Outpatient (CLI) | payer BC ==
[~2018-03-10] MED LIST changes: +ERGO1TAB12 PO
[2018-03-10 13:33] LABS: BASO % 0.2 %; BASO ABS # 0.02 K/uL (0-0.2); EOS % 0.1 %; EOS ABS # 0.01 K/uL (0-0.5); HEMATOCRIT 36.3 % (42-52); HEMOGLOBIN 12.9 g/dL (14.0-18.0); IG# 0.04 K/uL (0.00-0.02); LYMPH ABS # 1.23 K/uL (1.2-3.4); MEAN CELL VOLUME 92.1 fL (80-100); MEAN CORPUSCULAR HEMOGLOBIN 32.7 pg (25-34); MEAN CORPUSCULAR HGB CONC 35.5 g/dl (32-36); MEAN PLATELET VOLUME 9.6 fL (7.4-10.4); MONO ABS # 0.49 K/uL (0.11-0.59); NEUT % 85.4 %; NEUT ABS # 10.47 K/uL (1.4-6.5); PLATELET COUNT 283 K/uL (130-400); RED CELL DISTRIBUTION WIDTH CV 13.7 % (11.5-14.5); RED CELL DISTRIBUTION WIDTH SD 46.3 fL (36.4-46.3); WHITE BLOOD COUNT 12.26 K/uL (4.8-10.8)
[2018-03-10 13:56] LABS: ALBUMIN 3.2 gm/dl (3.4-5.0); ALKALINE PHOSPHATASE 77 U/L (45-117); ALT/SGPT 18 U/L (12-78); AST/SGOT 14 U/L (15-37); BLOOD UREA NITROGEN 40 mg/dl (7-18); CALCIUM 9.7 mg/dl (8.5-10.1); CARBON DIOXIDE 23 mmol/L (21-32); CREATININE 1.23 mg/dl (0.60-1.40); GLUCOSE 110 mg/dl (70-99); POTASSIUM 4.1 mmol/L (3.5-5.1); SODIUM 131 mmol/L (136-145); TOTAL PROTEIN 7.6 gm/dl (6.4-8.2)
== END | disposition home or self-care (01) ==
LOC: C.LABSPEC 13:06
PROVIDERS: ATTEND Family Medicine
DX: R10.30 Lower abdominal pain, unspecified (principal); R31.9 Hematuria, unspecified

== ENCOUNTER → 2018-03-20 | Day surgery (SDC) | payer BC ==
[2018-03-18 16:23] VITALS: Ht 167.6 cm; Wt 68.2 kg
[~2018-03-20] VITALS: Ht 167.6 cm; Wt 68.2 kg
[~2018-03-20] MED LIST changes: -CLC100 PO; +LIDOCAINE HCL 2% 2 ML VIAL (20MG/ML) ONE; -LVNIS30 SQ; -MRLP17 PO; -OXYC-57 PO; +PHENYLEPHRINE 100MCG/ML 5ML SYR ONE; +PROPOFOL IV EMULSION 10 MG/ML 20 ML VIAL ONE; +SODIUM CHLORIDE 0.9% 500ML 500 ML IV ONE
--- NOTE | 2018-03-20 12:51 | Endo History and Physical ---
History & Physical Date of Service: Mar 20, 2018. Chief Complaint: Abnormal CT scan colon Referring Physician: Maik Grubbs History of Present Illness 77 yo CM who presents for colonoscopy secondary to abnormal CT scan of the colon. Past Surgical History Hx Cardiac Surgery: No Hx Abdominal Surgery: No Hx Post-Op Nausea and Vomiting: No Hx Cancer Surgery: Yes (LEFT EAR) Hx Thoracic Surgery: No Hx Orthopedic: Yes (R HIP FX REPAIR (PIN PLACED)) Hx Urinary Tract Surgery: No Family History Colon CA Social History Smoking Status: Former Smoker Hx Substance Use: No Hx Alcohol Use: No Allergies Coded Allergies: No Known Allergies (Unverified , 03/20/18) Current Medications Reported Home Medications Medications Dose Route/Sig Max Daily Dose Days Date Category Vitamin D2 (Ergocalciferol) 2,000 Unit Tab 1 Tab PO WK 03/18/18 Reported Caltrate 600 Plus (Calcium Carbonate-Vitamin D W/) 1 Tab Tab 1 Tab PO BID 12/24/16 Rx Zestril (Lisinopril) 40 Mg Tab 40 Mg PO QPM 12/19/16 Reported Norvasc (Amlodipine Besylate) 5 Mg Tab 5 Mg PO QPM 12/19/16 Reported Vital Signs Weight (Kilograms): 68.18 Height (Feet): 5 Height (Inches): 6 Physical Exam General Appearance: WD/WN, no apparent distress Respiratory/Chest: Auscultation: breath sounds normal Cardiovascular: Heart Auscultation: RRR Abdomen: Bowel Sounds: normal Inspection & Palpation: soft, non-distended, no tenderness, guarding & rebound Assessment and Plan Assessment: 77 yo CM who presents for colonoscopy secondary to abnormal CT scan of the colon. Plan: Proceed with colonoscopy.
--- NOTE | 2018-03-20 13:40 | GI REPORT ---
Patient Name: Corey Patel Procedure Date: 03/20/2018 12:57 PM Date of : 1940 Admit Type: Outpatient Age: 77 Gender: Male Attending MD: Jose Kang DO Procedure: Colonoscopy Providers: Jose Kang DO Referring MD: Maik Cheek Indications: Abnormal CT of the GI tract Medicines: Monitored Anesthesia Care Complications: No immediate complications. Estimated Blood Loss: Estimated blood loss: none. Procedure: Pre-Anesthesia Assessment: - Prior to the procedure, a History and Physical was performed, and patient medications and allergies were reviewed. The patient's tolerance of previous anesthesia was also reviewed. The risks and benefits of the procedure and the sedation options and risks were discussed with the patient. All questions were answered, and informed consent was obtained. Prior Anticoagulants: The patient has taken no previous anticoagulant or antiplatelet agents. ASA Grade Assessment: III - A patient with severe systemic disease. After reviewing the risks and benefits, the patient was deemed in satisfactory condition to undergo the procedure. After I obtained informed consent, the scope was passed under direct vision. Throughout the procedure, the patient's blood pressure, pulse, and oxygen saturations were monitored continuously. The scope was introduced through the anus and advanced to the terminal ileum. The colonoscopy was performed without difficulty. The patient tolerated the procedure well. The quality of the bowel preparation was good. The terminal ileum, ileocecal valve, appendiceal orifice, and rectum were photographed. Findings: The perianal and digital rectal examinations were normal. Seven sessile polyps were found in the sigmoid colon and ascending colon. The polyps were 4 to 10 mm in size. These polyps were removed with a hot snare. Resection and retrieval were complete. Non-bleeding internal hemorrhoids were found during retroflexion. The hemorrhoids were small. Impression: - Seven 4 to 10 mm polyps in the sigmoid colon and in the ascending colon, removed with a hot snare. Resected and retrieved. - Non-bleeding internal hemorrhoids. Recommendation: - Resume previous diet. - Continue present medications. - Repeat colonoscopy for surveillance based on pathology results. - Return to primary care physician as previously scheduled. Jose Kang DO 03/20/2018 1:40:18 PM This report has been signed electronically. Note Initiated On: 03/20/2018 12:57 PM Number of Addenda: 0 I attest to the content of the Intraoperative Record and orders documented therein, exceptions below {[id number]}
--- NOTE | 2018-03-20 13:41 | Discharge Instructions ---
Endoscopy Patient Instructions Date / Procedure(s) Performed Mar 20, 2018. Colonoscopy Allergy Information Coded Allergies: No Known Allergies (Unverified , 03/20/18) Discharge Date / Findings Mar 20, 2018. Colon polyps Internal hemorrhoids Medication Instructions OK to resume all medications today as prescribed Reported Home Medications Medications Dose Route/Sig Max Daily Dose Days Date Category Vitamin D2 (Ergocalciferol) 2,000 Unit Tab 1 Tab PO WK 03/18/18 Reported Caltrate 600 Plus (Calcium Carbonate-Vitamin D W/) 1 Tab Tab 1 Tab PO BID 12/24/16 Rx Zestril (Lisinopril) 40 Mg Tab 40 Mg PO QPM 12/19/16 Reported Norvasc (Amlodipine Besylate) 5 Mg Tab 5 Mg PO QPM 12/19/16 Reported Provider Instructions Activity Restrictions - No exercising or heavy lifting for 24 hours. - Do not drink alcohol the day of the procedure. - Do not drive a car or operate machinery until the day after the procedure. - Do not make any important decisions or sign important papers in 24 hours after the procedure. Following Day: - Return to full activity which may include returning to work/school. Diet Start your diet with liquids and light foods (jello, soup, juice, toast). Then eat your usual diet if not nauseated. Treatment For Common After Affects For mild abdominal pain, bloating, or excessive gas: - Rest - Eat lightly - Lie on right side Follow-Up Information Follow-up with Dr. Maik Grubbs as scheduled Anesthesia Information What You Should Know You have had a procedure that required some medicine to reduce anxiety and discomfort. This treatment is called moderate sedation. After receiving the treatment, you may be sleepy, but you will be able to breathe on your own. The effects of the treatment may last for several hours. Follow these instructions along with Activity/Diet recommendations noted above: * Do NOT do anything where dizziness or clumsiness would be dangerous. * Rest quietly at home today, then you can be up and about tomorrow. * Have a responsible person stay with you the rest of today. * You may have had an I.V. today. If so, you may take the dressing off later today. Recommendations Call your doctor if: * Trouble breathing * Continuous vomiting for more than 24 hours * Temperature above 101 degrees * Severe abdominal pain or bloating * Pain not relieved by pain medicine ordered * There is increased drainage or redness from any incision * A large amount of rectal bleeding greater than 2-3 tablespoons. (If you had a polyp/s removed or have hemorrhoids, a small amount of blood - from the rectum is to be expected.) * You have any unanswered questions or concerns. IN THE EVENT OF A SERIOUS EMERGENCY, GO TO THE NEAREST EMERGENCY ROOM Your discharge instructions were prepared by provider Jose Kang. Patient Instructions Signature Page Corey Patel Patient (or Guardian) Signature/Date: I have read and understand the instructions given to me by my caregivers. Caregiver/RN/Doctor Signature/Date: The above-named patient and/or guardian has received patient instructions on this date. + Original Patient Signature Page (only) stays with chart. Please make copy for patient.
--- NOTE | 2018-03-20 14:06 | Anesthesiology Progress Note ---
Anesthesia Post Op Note Date & Time Mar 20, 2018 at 14:06 Vital Signs Pain Intensity: 0 Vital Signs Past 12 Hours Date Time Temp Pulse Resp B/P (MAP) Pulse Ox O2 Delivery O2 Flow Rate FiO2 03/20/18 13:55 69 18 109/69 (82) 96 Room Air 03/20/18 13:40 36.5 71 18 90/55 (67) 95 Room Air 03/20/18 12:59 36.5 89 18 129/78 (95) 95 Room Air Notes Mental Status: alert / awake / arousable, participated in evaluation Pt Amnestic to Procedure: Yes Nausea / Vomiting: adequately controlled Pain: adequately controlled Airway Patency, RR, SpO2: stable & adequate BP & HR: stable & adequate Hydration State: stable & adequate Anesthetic Complications: no major complications apparent
[2018-03-20 14:10] VITALS: BP 113/68; PULSE 69; O2SAT 96
== END | disposition home or self-care (01) ==
LOC: C.GI 12:28
PROVIDERS: ATTEND Internal Medicine
DX: R93.3 Abnormal findings on diagnostic imaging of other parts of digestive tract (principal); D12.5 Benign neoplasm of sigmoid colon; K63.5 Polyp of colon; Z80.0 Family history of malignant neoplasm of digestive organs; Z87.891 Personal history of nicotine dependence